=== PATIENT | female | born 1940 | race Caucasian/White ===

== ENCOUNTER 2016-05-16 13:07 | Outpatient (CLI) | payer MEDICARE ==
[2016-05-16 13:54] LABS: Bilirubin Negative (Negative); Blood, Urine Small (Negative); Glucose, Urine (Dipstick) Negative (Negative); Ketone, Urine Negative (Negative); Nitrite Negative (Negative); Protein, Urine (Dipstick) 100 mg/dL (Neg-Trace); Urobilinogen 0.2 mg/dL (0.2-1.0)
[2016-05-16 14:07] LABS: Bacteria/HPF 1+ HPF (None Seen); RBC/HPF 0-3 HPF (0-3); Squamous Epithelial 0-3 HPF (0-3)
== END 2016-05-16 13:08 | disposition home or self-care (01) ==
LOC: NAV LABSP 13:07
PROVIDERS: ATTEND Internal Medicine
DX: E78.5 Hyperlipidemia, unspecified (principal); R31.29 Other microscopic hematuria
CPT/HCPCS: 36415; 80061; 81001

== ENCOUNTER 2016-08-15 10:19 | Outpatient (CLI) | payer MEDICARE ==
[2016-08-15 13:40] LABS: Cardiac Risk 3.5 (Less than 4.5)
== END 2016-08-15 10:20 | disposition home or self-care (01) ==
LOC: NAVSJIPCSP 10:19
PROVIDERS: ATTEND Internal Medicine
DX: E78.5 Hyperlipidemia, unspecified (principal)
CPT/HCPCS: 36415; 80061

== ENCOUNTER 2016-10-11 11:18 | Outpatient (CLI) | payer MEDICARE ==
[2016-10-11 13:43] LABS: Bilirubin Negative (Negative); Blood, Urine Trace (Negative); Clarity Clear (Clear); Glucose, Urine (Dipstick) Negative (Negative); Leukocyte Negative (Negative); Nitrite Negative (Negative); Protein, Urine (Dipstick) Negative (Neg-Trace); Urobilinogen 0.2 mg/dL (0.2-1.0); pH, Urine 6.5 (5.0-9.0)
[2016-10-11 14:09] LABS: RBC/HPF 0-3 HPF (0-3); Squamous Epithelial 0-3 HPF (0-3)
== END 2016-10-11 11:19 | disposition home or self-care (01) ==
LOC: NAVSJIPCSP 11:18
PROVIDERS: ATTEND Urology
DX: N39.0 Urinary tract infection, site not specified (principal)
CPT/HCPCS: 36415; 81001; 87086

== ENCOUNTER 2016-10-17 10:30 | Outpatient (CLI) | payer MEDICARE ==
[2016-10-17 12:48] LABS: ALT (SGPT) 22 U/L (8-55); AST (SGOT) 23 U/L (5-34); Albumin 3.7 g/dL (3.4-4.8); Alkaline Phosphatase 55 U/L (40-150); Anion Gap 19 mmol/L (10-20); BUN (Urea Nitrogen) 18 mg/dL (9.8-20.1); Bilirubin, Total 0.4 mg/dL (0.2-1.2); Calc. Creatinine Clearance 0 mL/min (70-130); Calcium 9.7 mg/dL (7.8-10.44); Carbon Dioxide 22 mmol/L (23-31); Chloride 104 mmol/L (98-107); Estimated GFR-MDRD 62; Globulin 3.1 g/dL (2.4-3.5); Glucose 80 mg/dL (83-110); Potassium 3.8 mmol/L (3.5-5.1); Protein, Total 6.8 g/dL (6.0-8.3); Sodium 141 mmol/L (136-145)
[2016-10-17 14:04] LABS: Hemoglobin 13.7 g/dL (12.0-16.0); Mean Corpuscular HGB CONC 31.6 g/dL (32.0-36.0); Mean Corpuscular Hemoglobin 32.1 pg (27.0-31.0); Mean Platelet Volume 6.9 fL (7.4-10.4); Platelet Count 293 thou/uL (130-400); RBC Distribution Width 12.3 % (11.5-14.5); Red Blood Cell (RBC) Count 4.25 mill/uL (4.20-5.40); White Blood Cell (WBC) Count 14.9 thou/uL (4.8-10.8)
[2016-10-17 14:05] LABS: MDiff Complete? YES
[2016-10-17 14:06] LABS: Lymphocytes 22 % (21-51); Monocytes 12 % (0-10); Neutrophil 66 % (42-75); PLT Morphology Comment Appears Adequate
== END 2016-10-17 10:31 | disposition home or self-care (01) ==
LOC: NAVSJIPCSP 10:30
DX: R10.32 Left lower quadrant pain (principal)
CPT/HCPCS: 36415; 80053; 85025

== ENCOUNTER 2016-10-18 09:19 | Outpatient (CLI) | payer MEDICARE ==
[~2016-10-18 09:19] MED LIST: Iopamidol 370 76% 100 ML VIAL ONE
--- NOTE | 2016-11-08 09:40 | CT ---
CT OF ABDOMEN AND PELVIS WITH CONTRAST: Comparison: None. History: Left sided abdominal pain for days. Technique: Multiple contiguous axial images were obtained in a CT of the abdomen and pelvis with con trast. PO contrast was administered. Coronal reformats were performed. FINDINGS: The liver, gallbladder, kidneys, adrenal glands, spleen, and pancreas are unremarkable. No free air, free fluid, or stranding changes are seen in the abdomen or pelvis. There is scattered diverticula in the colon. There may be subtle stranding adjacent to the sigmoid c olon consistent with acute diverticulitis. The small bowel is normal in caliber. The appendix is not definitely seen. Streak artifact limits evaluation of the pelvis from the patient's right hip prosthesis. No abdomina l or pelvic lymphadenopathy are seen. Atherosclerotic calcification is seen in the aorta. Degenerative changes and post-surgical changes are seen in the spine. The visualized inferior thorax are unremarkable. The patient has a fat containing umbilical hernia. IMPRESSION: 1. Diverticulosis with findings suggesting acute diverticulosis. 2. Umbilical hernia. POS: [facility]
== END 2016-10-18 09:20 | disposition home or self-care (01) ==
LOC: NAV CT 09:19
DX: R10.32 Left lower quadrant pain (principal); K57.90 Diverticulosis of intestine, part unspecified, without perforation or abscess without bleeding; K42.9 Umbilical hernia without obstruction or gangrene
CPT/HCPCS: 74177

== ENCOUNTER 2016-11-15 09:14 | Outpatient (CLI) | payer MEDICARE ==
[2016-11-15 12:59] LABS: Cardiac Risk 3.9 (Less than 4.5)
== END 2016-11-15 09:15 | disposition home or self-care (01) ==
LOC: NAVSJIPCSP 09:14
PROVIDERS: ATTEND Internal Medicine
DX: E78.5 Hyperlipidemia, unspecified (principal)
CPT/HCPCS: 36415; 80061

== ENCOUNTER 2016-11-29 14:33 | Outpatient (CLI) | payer MEDICARE ==
[2016-11-29 21:51] LABS: ALT (SGPT) 24 U/L (8-55); AST (SGOT) 22 U/L (5-34); Albumin 3.7 g/dL (3.4-4.8); Alkaline Phosphatase 59 U/L (40-150); Anion Gap 16 mmol/L (10-20); BUN (Urea Nitrogen) 13 mg/dL (9.8-20.1); Bilirubin, Total 0.3 mg/dL (0.2-1.2); Calc. Creatinine Clearance 0 mL/min (70-130); Calcium 9.3 mg/dL (7.8-10.44); Carbon Dioxide 24 mmol/L (23-31); Chloride 105 mmol/L (98-107); Estimated GFR-MDRD 68; Globulin 2.7 g/dL (2.4-3.5); Glucose 129 mg/dL (83-110); Potassium 3.7 mmol/L (3.5-5.1); Protein, Total 6.4 g/dL (6.0-8.3); Sodium 141 mmol/L (136-145)
== END 2016-11-29 14:34 | disposition home or self-care (01) ==
LOC: NAVSJIPCSP 14:33
PROVIDERS: ATTEND Internal Medicine Rheumatology
DX: E55.9 Vitamin D deficiency, unspecified (principal); M81.0 Age-related osteoporosis without current pathological fracture
CPT/HCPCS: 36415; 80053; 82306

== ENCOUNTER 2018-01-31 11:31 | Outpatient (CLI) | payer MEDICARE ==
--- NOTE | 2018-01-31 13:56 | RAD ---
CHEST PA AND LATERAL 2 VIWES: HISTORY: A 77-year-old female with a history of dyspnea and cough. FINDINGS: Minimal linear parenchymal changes adjacent to the left heart border and in the left lower lobe, nons pecific, possibly mild pneumonitis, subsegmental atelectasis, or some underlying chronic component. There is also some mild nodularity in the right base, nonspecific as well. Several lower thoracic ve rtebral bodies show vertical height loss on the lateral view. There are prominent arthrosis and dege nerative changes of the left shoulder joint. Heart size is within normal limits. Atherosclerosis of the aorta. IMPRESSION: Some linear parenchymal changes in the left lower lobe and mild nodular changes in the right lower lo be, nonspecific, no evidence for confluent lobar pneumonia. No overt edema or acute pleural effusion . Left shoulder arthrosis. Atherosclerosis of the aorta with ectasia. Depending on concern, short- term followup and consideration for treatment of pneumonia or pneumonitis if that correlated with cli nical and laboratory findings. POS: [facility]
== END 2018-01-31 11:32 | disposition home or self-care (01) ==
LOC: NAV RAD 11:31
PROVIDERS: ATTEND Nurse Practitioner Adult Health
DX: R06.09 Other forms of dyspnea (principal); R05 Cough; R91.8 Other nonspecific abnormal finding of lung field; M19.012 Primary osteoarthritis, left shoulder; I70.0 Atherosclerosis of aorta; I77.819 Aortic ectasia, unspecified site
CPT/HCPCS: 71046

== ENCOUNTER 2018-02-07 06:59 | Emergency (ER) | payer MEDICARE ==
--- NOTE | 2018-02-07 08:14 | RAD ---
CHEST 1 VIEW AND ABDOMEN 2 VIEWS: Date: 02/07/18 HISTORY: Left upper quadrant pain. FINDINGS/IMPRESSION: The heart size is normal. The aorta is tortuous. The lungs are expanded without focal areas of consol idation, pneumothoraces, or pleural effusions. There are degenerative changes in the thoracolumbar sp ine and the left shoulder joint. There are postop changes and metallic hardware in the L4-L5-S1 level s and a right femoral head prosthesis. No free air or differential fluid levels are seen. There is fecal material in the colon. The bowel ga s pattern is unremarkable. POS: [facility]
[2018-02-07 08:24] LABS: #Basophils 0.1 thou/uL (0.0-0.2); #Eosinphils 0.7 thou/uL (0.0-0.7); #Lymphocytes 2.7 thou/uL (1.20-3.40); #Neutrophils 5.9 thou/uL (1.40-6.50); %Basophils 1.4 % (0.0-1.0); %Eosinophils 6.7 % (0.0-10.0); %Lymphocytes 25.6 % (21.0-51.0); %Monocytes 9.8 % (0.0-10.0); %Neutrophils 56.5 % (42.0-75.0); Hemoglobin 13.3 g/dL (12.0-16.0); Mean Corpuscular HGB CONC 32.1 g/dL (32.0-36.0); Mean Corpuscular Hemoglobin 32.4 pg (27.0-31.0); Mean Platelet Volume 7.4 fL (7.4-10.4); Platelet Count 300 thou/uL (130-400); RBC Distribution Width 11.9 % (11.5-14.5); White Blood Cell (WBC) Count 10.5 thou/uL (4.8-10.8)
[2018-02-07 08:30] LABS: Bilirubin Negative (Negative); Blood, Urine Trace (Negative); Clarity Clear (Clear); Glucose, Urine (Dipstick) Negative (Negative); Leukocyte Negative (Negative); Nitrite Negative (Negative); Protein, Urine (Dipstick) Negative (Neg-Trace); Specific Gravity, Urine 1.015 (1.005-1.030); Urobilinogen 0.2 mg/dL (0.2-1.0); pH, Urine 6.5 (5.0-9.0)
[2018-02-07 08:38] LABS: ALT (SGPT) 37 U/L (8-55); AST (SGOT) 32 U/L (5-34); Albumin 3.8 g/dL (3.4-4.8); Alkaline Phosphatase 65 U/L (40-150); Anion Gap 14 mmol/L (10-20); BUN (Urea Nitrogen) 19 mg/dL (9.8-20.1); Bilirubin, Total 0.4 mg/dL (0.2-1.2); Calc. Creatinine Clearance 0 mL/min (70-130); Calcium 10.5 mg/dL (7.8-10.44); Carbon Dioxide 26 mmol/L (23-31); Chloride 104 mmol/L (98-107); Estimated GFR-MDRD 60; Globulin 3.7 g/dL (2.4-3.5); Glucose 101 mg/dL (83-110); Lipase 38 U/L (8-78); Potassium 3.9 mmol/L (3.5-5.1); Protein, Total 7.5 g/dL (6.0-8.3); Sodium 140 mmol/L (136-145)
[2018-02-07 08:43] LABS: WBC/HPF 0-3 HPF (0-3)
[2018-02-07 08:44] LABS: Bacteria/HPF Rare-Few HPF (None Seen); Other Microscopic Description NO
== END 2018-02-07 09:20 | disposition home or self-care (01) ==
LOC: NAV ERS 06:59
DX: R10.12 Left upper quadrant pain (principal); E03.9 Hypothyroidism, unspecified; K21.9 Gastro-esophageal reflux disease without esophagitis; E78.5 Hyperlipidemia, unspecified; I10 Essential (primary) hypertension; Z79.899 Other long term (current) drug therapy
CPT/HCPCS: 74022; 80053; 81003; 81015; 83690; 85025

== ENCOUNTER 2018-06-13 13:07 | Outpatient (CLI) | payer MEDICARE ==
--- NOTE | 2018-06-13 15:37 | ULT ---
PELVIC ULTRASOUND WITH HAHN SCALE AND DOPPLER COLOR FLOW IMAGING TRANSVAGINAL AND TRANSABDOMINAL PELVIC ULTRASOUND PERFORMED: FINDINGS: There is multifocal punctate increased echogenicity of the uterine parenchyma. Endometrium is 4 mm in thickness. Doppler evaluation is performed which reveals flow to each ovary. No signifi cant free pelvic fluid. IMPRESSION: 1. Multifocal hyperechoic structure of the uterus which may relate to multiple small uterine calcifi cations. Findings are of indeterminate etiology. The possibility of underlying fibroid uterus may b e present, although a dominant, discernible uterine fibroid is not identified. 2. Endometrial stripe of 4 mm in thickness. 3. Flow is elicited from each ovary from with vascular waveforms documented. POS: [facility]
== END 2018-06-13 13:08 | disposition home or self-care (01) ==
LOC: NAV ULT 13:07
PROVIDERS: ATTEND Nurse Practitioner Adult Health
DX: R10.2 Pelvic and perineal pain (principal); R93.89 Abnormal findings on diagnostic imaging of other specified body structures
CPT/HCPCS: 76856

== ENCOUNTER 2021-05-02 10:58 | Outpatient (CLI) | payer MEDICARE | END 2021-05-02 10:59 | disposition home or self-care (01) | LOC: NAV RAD 10:58 | PROVIDERS: ATTEND Family Medicine | DX: M25.551 Pain in right hip (principal); M79.604 Pain in right leg ==

== ENCOUNTER 2021-12-24 12:46 | Emergency (ER) | payer MEDICARE ==
[2021-12-24] MEDS ORDERED: Aspirin Chewable 81 MG TAB ONE (13:05)
[2021-12-24 13:20] LABS: Prothrombin Time 12.8 sec (12.0-14.7)
[2021-12-24 13:21] LABS: PTT 29.1 sec (22.9-36.1)
[2021-12-24 13:27] LABS: #Basophils 0.1 thou/uL (0.0-0.2); #Eosinphils 0.3 thou/uL (0.0-0.7); #Lymphocytes 3.5 thou/uL (1.20-3.40); #Monocytes 0.7 thou/uL (0.11-0.59); #Neutrophils 3.7 thou/uL (1.40-6.50); %Basophils 1.2 % (0.0-1.0); %Eosinophils 3.8 % (0.0-10.0); %Lymphocytes 42.2 % (21.0-51.0); %Monocytes 8.6 % (0.0-10.0); %Neutrophils 44.3 % (42.0-75.0); Hemoglobin 14.9 g/dL (12.0-16.0); Mean Corpuscular HGB CONC 29.5 g/dL (32.0-36.0); Mean Platelet Volume 8.5 fL (7.4-10.4); Platelet Count 244 thou/uL (130-400); RBC Distribution Width 13.4 % (11.5-14.5); White Blood Cell (WBC) Count 8.3 thou/uL (4.8-10.8)
[2021-12-24 13:29] LABS: ALT (SGPT) 21 U/L (8-55); AST (SGOT) 16 U/L (5-34); Albumin 3.4 g/dL (3.4-4.8); Alkaline Phosphatase 46 U/L (40-110); Anion Gap 17 mmol/L (10-20); BUN (Urea Nitrogen) 19 mg/dL (9.8-20.1); Bilirubin, Total 0.4 mg/dL (0.2-1.2); CK (CPK) 49 U/L (29-168); Calc. Creatinine Clearance 0 mL/min (70-130); Calcium 9.8 mg/dL (7.8-10.44); Carbon Dioxide 24 mmol/L (23-31); Chloride 104 mmol/L (98-107); Estimated GFR 54; Globulin 3.4 g/dL (2.4-3.5); Glucose 101 mg/dL (83-110); Potassium 3.7 mmol/L (3.5-5.1); Protein, Total 6.8 g/dL (5.8-8.1); Sodium 141 mmol/L (136-145)
[2021-12-24 13:34] LABS: Bilirubin Negative (Negative); Blood, Urine Small (Negative); Clarity Cloudy (Clear); Glucose, Urine (Dipstick) Negative (Negative); Ketone, Urine Negative (Negative); Leukocyte Moderate (Negative); Nitrite Positive (Negative); Protein, Urine (Dipstick) 100 mg/dL (Neg-Trace); Urobilinogen 0.2 mg/dL (Less than 2)
[2021-12-24 13:36] LABS: Bacteria/HPF 2+ HPF (None Seen); RBC/HPF 0-3 HPF (0-3); Squamous Epithelial 0-3 HPF (0-3)
[2021-12-24 13:39] LABS: MDiff Complete? YES; Macrocytosis SLIGHT = 6-15 cells (100X) (0-5/hpf); Platelet Morphology Comment Appears Adequate
[2021-12-24] MEDS ORDERED: cefTRIAXone\\ROCEPHIN 1 GM VIAL ONE (13:44)
[2021-12-24] MEDS ORDERED: Sodium Chloride 0.9% 100 ML ONE (13:45)
[2021-12-24 13:49] LABS: CKMB 1.5 ng/mL (0-6.6)
[2021-12-24 15:05] LABS: SARS-CoV-2 NAA Rapid Test Not Detected (NotDetected)
[2021-12-24] MEDS ORDERED: Acetaminophen 500 MG TAB ONE (15:05)
== END 2021-12-24 15:27 | disposition short-term general hospital (02) ==
LOC: NAV ERS 12:46
DX: G45.9 Transient cerebral ischemic attack, unspecified (principal); K11.5 Sialolithiasis; N39.0 Urinary tract infection, site not specified; M19.90 Unspecified osteoarthritis, unspecified site; K21.9 Gastro-esophageal reflux disease without esophagitis; E78.00 Pure hypercholesterolemia, unspecified; I10 Essential (primary) hypertension; E78.5 Hyperlipidemia, unspecified; Z20.822 Contact with and (suspected) exposure to COVID-19; Z79.02 Long term (current) use of antithrombotics/antiplatelets; Z79.82 Long term (current) use of aspirin; Z79.899 Other long term (current) drug therapy
CPT/HCPCS: 70450; 71045; 80053; 82550; 82553; 82962; 84484; 85025; 85610; 85730; 87077; 87086; 87186; 93005; 96365; 99285; U0002; 36415; 36416; 81003; 81015; J0696; J3490

== ENCOUNTER 2023-03-04 17:05 | Emergency (ER) | payer MEDICARE ==
[2023-03-04 17:33] LABS: Hematocrit 47.7 % (36.0-47.0); Hemoglobin 15.2 g/dL (12.0-16.0); Mean Corpuscular HGB CONC 31.9 g/dL (32.0-36.0); Mean Corpuscular Hemoglobin 33.4 pg (27.0-31.0); Mean Platelet Volume 8.6 fL (7.4-10.4); Platelet Count 249 10x3/uL (130-400); RBC Distribution Width 13.1 % (11.5-14.5); Red Blood Cell (RBC) Count 4.56 mill/uL (4.20-5.40)
[2023-03-04 17:40] LABS: #Basophils 0.1 thou/uL (0.0-0.2); #Eosinphils 0.2 thou/uL (0.0-0.7); #Lymphocytes 2.7 thou/uL (1.20-3.40); #Monocytes 1.4 thou/uL (0.11-0.59); #Neutrophils 10.6 thou/uL (1.40-6.50); %Basophils 0.8 % (0.0-1.0); %Eosinophils 1.3 % (0.0-10.0); %Lymphocytes 18.1 % (21.0-51.0); %Monocytes 9.1 % (0.0-10.0); %Neutrophils 70.7 % (42.0-75.0)
[2023-03-04 17:48] LABS: ALT (SGPT) 24 U/L (8-55); AST (SGOT) 28 U/L (5-34); Alkaline Phosphatase 59 U/L (40-110); Anion Gap 14 mmol/L (10-20); BUN (Urea Nitrogen) 20 mg/dL (9.8-20.1); Bilirubin, Total 0.4 mg/dL (0.2-1.2); Calc. Creatinine Clearance 0 mL/min (70-130); Carbon Dioxide 27 mmol/L (23-31); Chloride 101 mmol/L (98-107); Estimated GFR 55; Globulin 3.8 g/dL (2.4-3.5); Glucose 121 mg/dL (83-110); Potassium 4.1 mmol/L (3.5-5.1); Protein, Total 7.8 g/dL (5.8-8.1); Sodium 138 mmol/L (136-145)
[2023-03-04 17:49] LABS: Troponin I 0.033 ng/mL (< 0.028)
[2023-03-04] MEDS ORDERED: Nitroglycerin 0.4 MG TAB 1 EACH ONE (18:32)
[2023-03-04] MEDS ORDERED: Aspirin Chewable 81 MG TAB ONE (18:32)
== END 2023-03-04 20:22 | disposition short-term general hospital (02) ==
LOC: NAV ERS 17:05
DX: R07.9 Chest pain, unspecified (principal); E03.9 Hypothyroidism, unspecified; K21.9 Gastro-esophageal reflux disease without esophagitis; E78.00 Pure hypercholesterolemia, unspecified; I10 Essential (primary) hypertension; Z79.82 Long term (current) use of aspirin; Z79.899 Other long term (current) drug therapy
CPT/HCPCS: 71045; 80053; 83880; 84484; 85025; 93005

== ENCOUNTER 2023-03-09 18:15 | Inpatient (IN) | payer MEDICARE ==
[2023-03-10] MEDS ORDERED: Ondansetron PF 4 MG/2 ML Vial IVP PRN (11:00)
[2023-03-10] MEDS ORDERED: Acetaminophen 650 MG Suppository PR PRN (11:00)
[2023-03-10] MEDS ORDERED: Ondansetron ODT 4 MG TAB PO PRN (11:00)
[2023-03-10] MEDS ORDERED: Senokot S 8.6-50 MG TAB PO PRN (11:00)
[2023-03-10] MEDS ORDERED: Bisacodyl 5 MG TAB PO PRN (11:00)
[2023-03-10] MEDS ORDERED: Acetaminophen 325 MG TAB PO PRN (11:00)
[2023-03-10] MEDS ORDERED: Calcium Carbonate 500 MG TAB PO SCH (17:45)
[2023-03-10] MEDS: Ferrous Sulfate 325 MG TAB PO SCH (17:52)
[2023-03-10] MEDS: Guaifenesin DM 100-10/5 ML UDCUP PO SCH (17:52)
[2023-03-10] MEDS: Amiodarone 200 MG TAB PO SCH (20:39)
[2023-03-10] MEDS: Apixaban 5 MG TAB PO SCH (20:39)
[2023-03-10] MEDS: Doxycycline 100 MG CAP PO SCH (20:40)
[2023-03-10] MEDS: Famotidine 20 MG TAB PO SCH (20:40)
[2023-03-10] MEDS: Atorvastatin Calcium 10 MG TAB PO SCH (20:40)
[2023-03-11] MEDS: Guaifenesin DM 100-10/5 ML UDCUP PO SCH ×4 (00:37→17:40)
[2023-03-11 05:06] VITALS: BMI 39.4
[2023-03-11 05:11] LABS: #Basophils 0.1 thou/uL (0.0-0.2); #Eosinphils 0.4 thou/uL (0.0-0.7); #Monocytes 1.5 thou/uL (0.11-0.59); #Neutrophils 7.7 thou/uL (1.40-6.50); %Basophils 0.5 % (0.0-1.0); %Eosinophils 3.4 % (0.0-10.0); %Lymphocytes 17.2 % (21.0-51.0); %Monocytes 12.8 % (0.0-10.0); Hematocrit 41.4 % (36.0-47.0); Hemoglobin 13.4 g/dL (12.0-16.0); Mean Corpuscular HGB CONC 32.3 g/dL (32.0-36.0); Mean Corpuscular Hemoglobin 33.6 pg (27.0-31.0); Mean Platelet Volume 7.5 fL (7.4-10.4); Platelet Count 326 10x3/uL (130-400); RBC Distribution Width 11.8 % (11.5-14.5); Red Blood Cell (RBC) Count 3.99 mill/uL (4.20-5.40); White Blood Cell (WBC) Count 11.6 10x3/uL (4.8-10.8)
[2023-03-11 05:27] LABS: Anion Gap 14 mmol/L (10-20); BUN (Urea Nitrogen) 26 mg/dL (9.8-20.1); Calc. Creatinine Clearance 61 mL/min (70-130); Carbon Dioxide 27 mmol/L (23-31); Chloride 101 mmol/L (98-107); Estimated GFR 50; Glucose 94 mg/dL (83-110); Potassium 4.2 mmol/L (3.5-5.1); Sodium 138 mmol/L (136-145)
[2023-03-11] MEDS: Levothyroxine Sodium 125 MCG TAB PO SCH (06:15)
[2023-03-11] MEDS ORDERED: Ipratropium/Albuterol 3 ML NEB NEB PRN (08:29)
[2023-03-11] MEDS: Calcium Carbonate 500 MG TAB PO SCH ×2 (08:52→17:40)
[2023-03-11] MEDS: DULoxetine 20 MG CAP PO SCH (08:52)
[2023-03-11] MEDS: Mirabegron ER 25 MG ER.TAB PO SCH (08:53)
[2023-03-11] MEDS: Amiodarone 200 MG TAB PO SCH ×2 (08:53→20:31)
[2023-03-11] MEDS: Aspirin 81 mg Enteric Coated Tablet PO SCH (08:54)
[2023-03-11] MEDS: Doxycycline 100 MG CAP PO SCH ×2 (08:54→20:32)
[2023-03-11] MEDS: Loratadine 10 MG TAB PO SCH (08:54)
[2023-03-11] MEDS: Cholecalciferol 1,000 UNITS (25 MCG) TAB PO SCH (08:54)
[2023-03-11] MEDS: Multivitamin W/ Minerals 1 TAB PO SCH (08:54)
[2023-03-11] MEDS: Famotidine 20 MG TAB PO SCH ×2 (08:54→20:32)
[2023-03-11] MEDS: Apixaban 5 MG TAB PO SCH ×2 (08:55→20:32)
[2023-03-11] MEDS: dilTIAZem CD 120 MG CAP PO SCH (08:55)
[2023-03-11] MEDS: Cyanocobalamin (Vitamin B-12) 1,000 MCG TAB PO SCH (08:55)
[2023-03-11] MEDS: Folic Acid 1 MG TAB PO SCH (08:55)
[2023-03-11] MEDS: Ipratropium/Albuterol 3 ML NEB NEB SCH ×4 (10:29→22:24)
[2023-03-11] MEDS: Ferrous Sulfate 325 MG TAB PO SCH (17:40)
[2023-03-11] MEDS: Atorvastatin Calcium 10 MG TAB PO SCH (20:31)
[2023-03-11] MEDS: CeleCOXIB 100 MG CAP PO SCH (20:31)
[2023-03-12] MEDS: Guaifenesin DM 100-10/5 ML UDCUP PO SCH ×5 (00:52→22:43)
[2023-03-12] MEDS: Ipratropium/Albuterol 3 ML NEB NEB SCH ×6 (03:31→22:36)
[2023-03-12] MEDS: Levothyroxine Sodium 125 MCG TAB PO SCH (05:17)
[2023-03-12] MEDS: Multivitamin W/ Minerals 1 TAB PO SCH (08:14)
[2023-03-12] MEDS: Cyanocobalamin (Vitamin B-12) 1,000 MCG TAB PO SCH (08:14)
[2023-03-12] MEDS: Calcium Carbonate 500 MG TAB PO SCH ×2 (08:14→17:17)
[2023-03-12] MEDS: Famotidine 20 MG TAB PO SCH ×2 (08:14→20:28)
[2023-03-12] MEDS: Cholecalciferol 1,000 UNITS (25 MCG) TAB PO SCH (08:14)
[2023-03-12] MEDS: Apixaban 5 MG TAB PO SCH ×2 (08:15→20:28)
[2023-03-12] MEDS: DULoxetine 20 MG CAP PO SCH (08:15)
[2023-03-12] MEDS: Doxycycline 100 MG CAP PO SCH ×2 (08:15→20:29)
[2023-03-12] MEDS: Aspirin 81 mg Enteric Coated Tablet PO SCH (08:15)
[2023-03-12] MEDS: Folic Acid 1 MG TAB PO SCH (08:15)
[2023-03-12] MEDS: Mirabegron ER 25 MG ER.TAB PO SCH (08:16)
[2023-03-12] MEDS: CeleCOXIB 100 MG CAP PO SCH ×2 (08:18→20:29)
[2023-03-12] MEDS: Loratadine 10 MG TAB PO SCH (08:19)
[2023-03-12] MEDS: Estradiol [Estrace 0.01% Vaginal Cream] 42.5 GM Tube VAG SCH ×2 (08:19→11:15)
[2023-03-12] MEDS: Amiodarone 200 MG TAB PO SCH ×2 (08:21→20:28)
[2023-03-12] MEDS: dilTIAZem CD 120 MG CAP PO SCH (08:21)
[2023-03-12] MEDS: Ferrous Sulfate 325 MG TAB PO SCH (17:17)
[2023-03-12] MEDS ORDERED: Promethazine HCl 25 MG SUPP PR PRN (18:50)
[2023-03-12] MEDS ORDERED: Artificial Tear Sol 15 ML BOT EA EYE PRN (18:50)
[2023-03-12] MEDS ORDERED: Benzocaine/Menthol 1 LOZ LOZ PO PRN (18:50)
[2023-03-12] MEDS ORDERED: Sodium Chloride 0.65% Nasal 44 ML BOT EA NARE PRN (18:50)
[2023-03-12] MEDS ORDERED: cloNIDine 0.1 MG TAB PO PRN (18:50)
[2023-03-12] MEDS: Atorvastatin Calcium 10 MG TAB PO SCH (20:29)
[2023-03-13] MEDS: Ipratropium/Albuterol 3 ML NEB NEB SCH ×6 (02:16→21:52)
[2023-03-13] MEDS: Levothyroxine Sodium 125 MCG TAB PO SCH (06:08)
[2023-03-13] MEDS: Guaifenesin DM 100-10/5 ML UDCUP PO SCH ×3 (06:12→17:45)
[2023-03-13] MEDS: Cyanocobalamin (Vitamin B-12) 1,000 MCG TAB PO SCH (08:39)
[2023-03-13] MEDS: Doxycycline 100 MG CAP PO SCH ×2 (08:39→21:51)
[2023-03-13] MEDS: Mirabegron ER 25 MG ER.TAB PO SCH (08:39)
[2023-03-13] MEDS: Amiodarone 200 MG TAB PO SCH ×2 (08:40→21:52)
[2023-03-13] MEDS: CeleCOXIB 100 MG CAP PO SCH ×2 (08:41→21:51)
[2023-03-13] MEDS: Calcium Carbonate 500 MG TAB PO SCH ×2 (08:42→17:44)
[2023-03-13] MEDS: Multivitamin W/ Minerals 1 TAB PO SCH (08:42)
[2023-03-13] MEDS: Apixaban 5 MG TAB PO SCH ×2 (08:42→21:51)
[2023-03-13] MEDS: dilTIAZem CD 120 MG CAP PO SCH (08:42)
[2023-03-13] MEDS: Aspirin 81 mg Enteric Coated Tablet PO SCH (08:42)
[2023-03-13] MEDS: DULoxetine 20 MG CAP PO SCH (08:43)
[2023-03-13] MEDS: Loratadine 10 MG TAB PO SCH (08:43)
[2023-03-13] MEDS: Cholecalciferol 1,000 UNITS (25 MCG) TAB PO SCH (08:43)
[2023-03-13] MEDS: Famotidine 20 MG TAB PO SCH ×2 (08:43→21:51)
[2023-03-13] MEDS: Folic Acid 1 MG TAB PO SCH (09:11)
[2023-03-13] MEDS: Ferrous Sulfate 325 MG TAB PO SCH (17:44)
[2023-03-13] MEDS: Atorvastatin Calcium 10 MG TAB PO SCH (21:51)
[2023-03-14] MEDS: Guaifenesin DM 100-10/5 ML UDCUP PO SCH ×4 (00:10→17:36)
[2023-03-14] MEDS: Ipratropium/Albuterol 3 ML NEB NEB SCH ×5 (03:07→17:36)
[2023-03-14] MEDS: Levothyroxine Sodium 125 MCG TAB PO SCH (06:29)
[2023-03-14] MEDS: DULoxetine 20 MG CAP PO SCH (08:17)
[2023-03-14] MEDS: Mirabegron ER 25 MG ER.TAB PO SCH (08:18)
[2023-03-14] MEDS: CeleCOXIB 100 MG CAP PO SCH (08:18)
[2023-03-14] MEDS: Calcium Carbonate 500 MG TAB PO SCH ×2 (08:19→17:36)
[2023-03-14] MEDS: Aspirin 81 mg Enteric Coated Tablet PO SCH (08:19)
[2023-03-14] MEDS: Folic Acid 1 MG TAB PO SCH (08:19)
[2023-03-14] MEDS: Amiodarone 200 MG TAB PO SCH (08:19)
[2023-03-14] MEDS: Cholecalciferol 1,000 UNITS (25 MCG) TAB PO SCH (08:19)
[2023-03-14] MEDS: Loratadine 10 MG TAB PO SCH (08:19)
[2023-03-14] MEDS: Multivitamin W/ Minerals 1 TAB PO SCH (08:20)
[2023-03-14] MEDS: Famotidine 20 MG TAB PO SCH (08:20)
[2023-03-14] MEDS: Doxycycline 100 MG CAP PO SCH (08:20)
[2023-03-14] MEDS: Apixaban 5 MG TAB PO SCH (08:20)
[2023-03-14] MEDS: Cyanocobalamin (Vitamin B-12) 1,000 MCG TAB PO SCH (08:21)
[2023-03-14] MEDS: dilTIAZem CD 120 MG CAP PO SCH (08:21)
[2023-03-14] MEDS: Estradiol [Estrace 0.01% Vaginal Cream] 42.5 GM Tube VAG SCH (08:24)
[2023-03-14 12:20] LABS: Bilirubin Small (Negative); Blood, Urine Large (Negative); Glucose, Urine (Dipstick) 100 mg/dL (Negative); Ketone, Urine Trace mg/dL (Negative); Leukocyte Negative (Negative); Nitrite Negative (Negative); Protein, Urine (Dipstick) > or equal to 300 mg/dL (Neg-Trace); Specific Gravity, Urine 1.025 (1.005-1.030); Urobilinogen 0.2 mg/dL (Less than 2); pH, Urine 5.5 (5.0-9.0)
[2023-03-14 12:26] LABS: Clarity Cloudy (Clear)
[2023-03-14 13:58] LABS: Mucous/LPF 1+ LPF (<2+); RBC/HPF Greater than 50 HPF (0-3); Squamous Epithelial 0-3 HPF (0-3); WBC/HPF 0-3 HPF (0-3)
[2023-03-14] MEDS ORDERED: Furosemide 20 MG TAB PO SCH (14:00)
[2023-03-14 16:21] LABS: #Basophils 0.1 thou/uL (0.0-0.2); #Eosinphils 0.1 thou/uL (0.0-0.7); #Lymphocytes 1.2 thou/uL (1.20-3.40); #Monocytes 1.1 thou/uL (0.11-0.59); %Basophils 0.6 % (0.0-1.0); %Eosinophils 0.5 % (0.0-10.0); %Lymphocytes 9.4 % (21.0-51.0); %Monocytes 8.8 % (0.0-10.0); %Neutrophils 80.7 % (42.0-75.0); Hemoglobin 11.8 g/dL (12.0-16.0); Mean Corpuscular HGB CONC 32.8 g/dL (32.0-36.0); Mean Corpuscular Hemoglobin 33.4 pg (27.0-31.0); Mean Platelet Volume 8.2 fL (7.4-10.4); Platelet Count 337 10x3/uL (130-400); RBC Distribution Width 11.7 % (11.5-14.5); Red Blood Cell (RBC) Count 3.54 mill/uL (4.20-5.40); White Blood Cell (WBC) Count 12.4 10x3/uL (4.8-10.8)
[2023-03-14 16:40] LABS: Anion Gap 16 mmol/L (10-20); BUN (Urea Nitrogen) 54 mg/dL (9.8-20.1); Calc. Creatinine Clearance 25 mL/min (70-130); Calcium 10.3 mg/dL (7.8-10.44); Carbon Dioxide 22 mmol/L (23-31); Chloride 92 mmol/L (98-107); Estimated GFR 17; Glucose 117 mg/dL (83-110); Potassium 4.6 mmol/L (3.5-5.1); Sodium 125 mmol/L (136-145)
[2023-03-14] MEDS ORDERED: Meropenem 1 GM in Sodium Chloride 0.9% 100 ML IVPB SCH ×2 (17:15→22:00)
[2023-03-14] MEDS ORDERED: Sodium Chloride 0.9% 1,000 ML IV SCH (17:30)
[2023-03-14] MEDS: Ferrous Sulfate 325 MG TAB PO SCH (17:36)
[2023-03-14 20:09] VITALS: BP 122/68; TEMP 97.6
[2023-03-14] MEDS ORDERED: Doxycycline 100 MG CAP PO SCH (21:00)
[2023-03-14] MEDS ORDERED: Nitrofurantoin Monohyd/M-Cryst 100 MG CAP PO SCH (21:00)
[2023-03-15] MEDS ORDERED: Meropenem 500 MG in Sodium Chloride 0.9% 100 ML IVPB SCH (04:00)
[2023-03-31] MEDS ORDERED: Amiodarone 200 MG TAB PO SCH (21:00)
== END 2023-03-14 20:05 | disposition swing bed (61) | DRG 193 ==
LOC: NAV ACUTE 03-10 13:36
PROVIDERS: ADMIT Family Medicine; ATTEND Family Medicine
DX: J18.9 Pneumonia, unspecified organism (principal); I50.23 Acute on chronic systolic (congestive) heart failure; J96.01 Acute respiratory failure with hypoxia; N39.0 Urinary tract infection, site not specified; J98.11 Atelectasis; I11.0 Hypertensive heart disease with heart failure; R53.81 Other malaise; E78.5 Hyperlipidemia, unspecified; M79.675 Pain in left toe(s); R30.0 Dysuria; E03.9 Hypothyroidism, unspecified; R31.9 Hematuria, unspecified; I48.0 Paroxysmal atrial fibrillation; E66.01 Morbid (severe) obesity due to excess calories; M19.90 Unspecified osteoarthritis, unspecified site; Z96.653 Presence of artificial knee joint, bilateral; M10.9 Gout, unspecified; Z88.8 Allergy status to other drugs, medicaments and biological substances; Z79.82 Long term (current) use of aspirin; Z79.899 Other long term (current) drug therapy; Z68.39 Body mass index [BMI] 39.0-39.9, adult
CPT/HCPCS: 36415; 71046; 80048; 81001; 83880; 84145; 84550; 85025; 87077; 87086; 87186; 94640; J7620

== ENCOUNTER 2023-03-22 10:07 | Inpatient (IN) | payer MEDICARE ==
[2023-03-22] MEDS ORDERED: Ondansetron ODT 4 MG TAB SL PRN (12:52)
[2023-03-22] MEDS ORDERED: Ipratropium/Albuterol 3 ML NEB ONE (14:18)
[2023-03-22] MEDS: Furosemide 40 MG TAB PO SCH (15:24)
[2023-03-22] MEDS: Senokot S 8.6-50 MG TAB PO SCH (20:24)
[2023-03-22] MEDS: Amiodarone 200 MG TAB PO SCH (20:24)
[2023-03-22] MEDS: Atorvastatin Calcium 10 MG TAB PO SCH (20:24)
[2023-03-22] MEDS: Famotidine 20 MG TAB PO SCH (20:24)
[2023-03-22] MEDS: Ipratropium/Albuterol 3 ML NEB NEB PRN (20:25)
[2023-03-22] MEDS: Apixaban 5 MG TAB PO SCH (20:25)
[2023-03-22] MEDS: guaiFENesin/DM ER PO SCH (20:40)
[2023-03-23] MEDS: Ipratropium/Albuterol 3 ML NEB NEB PRN ×3 (02:15→18:06)
[2023-03-23] MEDS: Levothyroxine Sodium 125 MCG TAB PO SCH (05:33)
[2023-03-23] MEDS: Amiodarone 200 MG TAB PO SCH ×2 (08:18→20:53)
[2023-03-23] MEDS: Multivitamin W/ Minerals 1 TAB PO SCH (08:18)
[2023-03-23] MEDS: guaiFENesin/DM ER PO SCH ×2 (08:19→20:53)
[2023-03-23] MEDS: Furosemide 40 MG TAB PO SCH ×2 (08:19→13:01)
[2023-03-23] MEDS: Loratadine 10 MG TAB PO SCH (08:19)
[2023-03-23] MEDS: Aspirin 81 mg Enteric Coated Tablet PO SCH (08:19)
[2023-03-23] MEDS: Cyanocobalamin (Vitamin B-12) 1,000 MCG TAB PO SCH (08:19)
[2023-03-23] MEDS: Apixaban 5 MG TAB PO SCH ×2 (08:19→20:53)
[2023-03-23] MEDS: Cholecalciferol 1,000 UNITS (25 MCG) TAB PO SCH (08:19)
[2023-03-23] MEDS: Famotidine 20 MG TAB PO SCH (08:19)
[2023-03-23] MEDS: DULoxetine 20 MG CAP PO SCH (08:19)
[2023-03-23] MEDS ORDERED: Mirabegron ER 25 MG ER.TAB PO SCH (09:00)
[2023-03-23 13:03] LABS: #Basophils 0.1 thou/uL (0.0-0.2); #Eosinphils 0.2 thou/uL (0.0-0.7); #Lymphocytes 1.2 thou/uL (1.20-3.40); #Neutrophils 8.4 thou/uL (1.40-6.50); %Basophils 0.9 % (0.0-1.0); %Eosinophils 2.1 % (0.0-10.0); %Lymphocytes 10.7 % (21.0-51.0); %Monocytes 8.8 % (0.0-10.0); %Neutrophils 77.5 % (42.0-75.0); Hematocrit 35.8 % (36.0-47.0); Hemoglobin 11.2 g/dL (12.0-16.0); Mean Corpuscular HGB CONC 31.2 g/dL (32.0-36.0); Mean Corpuscular Hemoglobin 32.9 pg (27.0-31.0); Mean Platelet Volume 7.4 fL (7.4-10.4); Platelet Count 340 10x3/uL (130-400); RBC Distribution Width 12.4 % (11.5-14.5); Red Blood Cell (RBC) Count 3.39 mill/uL (4.20-5.40); White Blood Cell (WBC) Count 10.8 10x3/uL (4.8-10.8)
[2023-03-23 13:07] LABS: ALT (SGPT) 34 U/L (8-55); AST (SGOT) 37 U/L (5-34); Albumin 3.5 g/dL (3.4-4.8); Alkaline Phosphatase 70 U/L (40-110); Anion Gap 17 mmol/L (10-20); BUN (Urea Nitrogen) 35 mg/dL (9.8-20.1); Bilirubin, Total 0.5 mg/dL (0.2-1.2); Calc. Creatinine Clearance 31 mL/min (70-130); Calcium 9.3 mg/dL (7.8-10.44); Carbon Dioxide 25 mmol/L (23-31); Chloride 95 mmol/L (98-107); Estimated GFR 23; Glucose 109 mg/dL (83-110); Potassium 3.9 mmol/L (3.5-5.1); Protein, Total 7.5 g/dL (5.8-8.1); Sodium 133 mmol/L (136-145)
[2023-03-23] MEDS: Atorvastatin Calcium 10 MG TAB PO SCH (20:53)
[2023-03-23] MEDS: Senokot S 8.6-50 MG TAB PO SCH (20:53)
[2023-03-24 05:34] LABS: Anion Gap 15 mmol/L (10-20); BUN (Urea Nitrogen) 41 mg/dL (9.8-20.1); Calc. Creatinine Clearance 30 mL/min (70-130); Carbon Dioxide 28 mmol/L (23-31); Chloride 96 mmol/L (98-107); Estimated GFR 21; Glucose 87 mg/dL (83-110); Potassium 3.8 mmol/L (3.5-5.1); Sodium 135 mmol/L (136-145)
[2023-03-24] MEDS: Levothyroxine Sodium 125 MCG TAB PO SCH (05:34)
[2023-03-24] MEDS ORDERED: Furosemide 40 MG TAB PO SCH (07:30)
[2023-03-24] MEDS: Amiodarone 200 MG TAB PO SCH ×2 (09:38→20:54)
[2023-03-24] MEDS: Aspirin 81 mg Enteric Coated Tablet PO SCH (09:38)
[2023-03-24] MEDS: DULoxetine 20 MG CAP PO SCH (09:38)
[2023-03-24] MEDS: Multivitamin W/ Minerals 1 TAB PO SCH (09:38)
[2023-03-24] MEDS: Loratadine 10 MG TAB PO SCH (09:39)
[2023-03-24] MEDS: Cholecalciferol 1,000 UNITS (25 MCG) TAB PO SCH (09:39)
[2023-03-24] MEDS: Apixaban 5 MG TAB PO SCH (09:39)
[2023-03-24] MEDS: guaiFENesin/DM ER PO SCH ×2 (09:39→20:53)
[2023-03-24] MEDS: Famotidine 20 MG TAB PO SCH (09:39)
[2023-03-24] MEDS: Cyanocobalamin (Vitamin B-12) 1,000 MCG TAB PO SCH (09:39)
[2023-03-24] MEDS: Ipratropium/Albuterol 3 ML NEB NEB PRN (13:09)
[2023-03-24] MEDS: Senokot S 8.6-50 MG TAB PO SCH (20:53)
[2023-03-24] MEDS: Atorvastatin Calcium 10 MG TAB PO SCH (20:54)
[2023-03-24] MEDS ORDERED: Apixaban 2.5 MG TAB PO SCH (21:00)
[2023-03-25] MEDS: Levothyroxine Sodium 125 MCG TAB PO SCH (05:26)
[2023-03-25 05:41] LABS: Anion Gap 11 mmol/L (10-20); BUN (Urea Nitrogen) 43 mg/dL (9.8-20.1); Calc. Creatinine Clearance 28 mL/min (70-130); Carbon Dioxide 31 mmol/L (23-31); Chloride 98 mmol/L (98-107); Estimated GFR 20; Glucose 92 mg/dL (83-110); Potassium 3.8 mmol/L (3.5-5.1); Sodium 136 mmol/L (136-145)
[2023-03-25] MEDS: Ipratropium/Albuterol 3 ML NEB NEB PRN (06:39)
[2023-03-25] MEDS ORDERED: Furosemide 20 MG TAB PO SCH (07:30)
[2023-03-25] MEDS: Multivitamin W/ Minerals 1 TAB PO SCH (09:13)
[2023-03-25] MEDS: Amiodarone 200 MG TAB PO SCH ×2 (09:13→20:44)
[2023-03-25] MEDS: Cyanocobalamin (Vitamin B-12) 1,000 MCG TAB PO SCH (09:13)
[2023-03-25] MEDS: DULoxetine 20 MG CAP PO SCH (09:13)
[2023-03-25] MEDS: Loratadine 10 MG TAB PO SCH (09:13)
[2023-03-25] MEDS: Cholecalciferol 1,000 UNITS (25 MCG) TAB PO SCH (09:13)
[2023-03-25] MEDS: Famotidine 20 MG TAB PO SCH (09:14)
[2023-03-25] MEDS: guaiFENesin/DM ER PO SCH ×2 (09:14→20:44)
[2023-03-25] MEDS: Benzonatate 100 MG CAP PO SCH ×3 (09:18→20:44)
[2023-03-25] MEDS ORDERED: Ipratropium/Albuterol 3 ML NEB NEB PRN (09:29)
[2023-03-25] MEDS: Ipratropium/Albuterol 3 ML NEB NEB SCH ×3 (13:08→20:43)
[2023-03-25 14:54] LABS: Bilirubin Small (Negative); Blood, Urine Large (Negative); Glucose, Urine (Dipstick) Negative (Negative); Ketone, Urine Negative (Negative); Leukocyte Trace (Negative); Nitrite Negative (Negative); Protein, Urine (Dipstick) > or equal to 300 mg/dL (Neg-Trace); Urobilinogen 0.2 mg/dL (Less than 2); pH, Urine 5.5 (5.0-9.0)
[2023-03-25 15:30] LABS: CAUTI Indications for Culture Acute Hematuria; Clarity Cloudy (Clear); RBC/HPF Greater than 50 HPF (0-3); Squamous Epithelial 0-3 HPF (0-3); WBC/HPF 0-3 HPF (0-3)
[2023-03-25 15:31] LABS: Urine Culture Reflex No No
[2023-03-25 15:40] LABS: #Basophils 0.1 thou/uL (0.0-0.2); #Eosinphils 0.5 thou/uL (0.0-0.7); #Lymphocytes 2.4 thou/uL (1.20-3.40); #Monocytes 1.3 thou/uL (0.11-0.59); #Neutrophils 7.4 thou/uL (1.40-6.50); %Basophils 0.7 % (0.0-1.0); %Eosinophils 4.3 % (0.0-10.0); %Lymphocytes 20.9 % (21.0-51.0); %Monocytes 10.8 % (0.0-10.0); %Neutrophils 63.4 % (42.0-75.0); Hematocrit 32.4 % (36.0-47.0); Hemoglobin 10.2 g/dL (12.0-16.0); Mean Corpuscular HGB CONC 31.5 g/dL (32.0-36.0); Mean Corpuscular Hemoglobin 32.8 pg (27.0-31.0); Mean Platelet Volume 6.8 fL (7.4-10.4); Platelet Count 331 10x3/uL (130-400); RBC Distribution Width 12.7 % (11.5-14.5); Red Blood Cell (RBC) Count 3.11 mill/uL (4.20-5.40); White Blood Cell (WBC) Count 11.7 10x3/uL (4.8-10.8)
[2023-03-25] MEDS ORDERED: Azithromycin 250 MG TAB PO SCH (15:45)
[2023-03-25 16:28] LABS: Creatinine, Urine 99.14 mg/dL (47-110)
[2023-03-25] MEDS: Mometasone/Formoterol 200/5 60 PUFF INH SCH (20:42)
[2023-03-25] MEDS: predniSONE 20 MG TAB PO SCH (20:44)
[2023-03-25] MEDS: Atorvastatin Calcium 10 MG TAB PO SCH (20:44)
[2023-03-25] MEDS: Senokot S 8.6-50 MG TAB PO SCH (20:44)
[2023-03-26] MEDS: Ipratropium/Albuterol 3 ML NEB NEB SCH ×6 (01:15→21:09)
[2023-03-26] MEDS: Levothyroxine Sodium 125 MCG TAB PO SCH (05:17)
[2023-03-26 05:22] LABS: #Lymphocytes 0.7 thou/uL (1.20-3.40); #Monocytes 0.3 thou/uL (0.11-0.59); %Basophils 0.1 % (0.0-1.0); %Lymphocytes 6.3 % (21.0-51.0); %Monocytes 2.9 % (0.0-10.0); %Neutrophils 90.7 % (42.0-75.0); Hematocrit 29.2 % (36.0-47.0); Hemoglobin 9.4 g/dL (12.0-16.0); Mean Corpuscular HGB CONC 32.1 g/dL (32.0-36.0); Mean Corpuscular Hemoglobin 33.3 pg (27.0-31.0); Mean Platelet Volume 7.6 fL (7.4-10.4); Platelet Count 312 10x3/uL (130-400); RBC Distribution Width 12.2 % (11.5-14.5); Red Blood Cell (RBC) Count 2.83 mill/uL (4.20-5.40)
[2023-03-26 05:36] LABS: Anion Gap 12 mmol/L (10-20); BUN (Urea Nitrogen) 47 mg/dL (9.8-20.1); Calc. Creatinine Clearance 31 mL/min (70-130); Calcium 9.2 mg/dL (7.8-10.44); Carbon Dioxide 30 mmol/L (23-31); Chloride 100 mmol/L (98-107); Estimated GFR 22; Glucose 133 mg/dL (83-110); Potassium 4.9 mmol/L (3.5-5.1); Sodium 137 mmol/L (136-145)
[2023-03-26] MEDS ORDERED: Furosemide 20 MG TAB PO SCH (07:30)
[2023-03-26] MEDS: Multivitamin W/ Minerals 1 TAB PO SCH (08:29)
[2023-03-26] MEDS: DULoxetine 20 MG CAP PO SCH (08:29)
[2023-03-26] MEDS: Benzonatate 100 MG CAP PO SCH ×3 (08:29→22:14)
[2023-03-26] MEDS: Azithromycin 250 MG TAB PO SCH (08:30)
[2023-03-26] MEDS: Cholecalciferol 1,000 UNITS (25 MCG) TAB PO SCH (08:30)
[2023-03-26] MEDS: Cyanocobalamin (Vitamin B-12) 1,000 MCG TAB PO SCH (08:30)
[2023-03-26] MEDS: Famotidine 20 MG TAB PO SCH (08:30)
[2023-03-26] MEDS: predniSONE 20 MG TAB PO SCH ×2 (08:30→21:08)
[2023-03-26] MEDS: Amiodarone 200 MG TAB PO SCH ×2 (08:30→21:09)
[2023-03-26] MEDS: guaiFENesin/DM ER PO SCH ×2 (08:30→21:08)
[2023-03-26] MEDS: Loratadine 10 MG TAB PO SCH (08:30)
[2023-03-26] MEDS: Mometasone/Formoterol 200/5 60 PUFF INH SCH ×2 (08:30→21:09)
[2023-03-26] MEDS ORDERED: Aspirin 81 mg Enteric Coated Tablet PO SCH (09:00)
[2023-03-26] MEDS ORDERED: Benzonatate 100 MG CAP ONE ×2 (15:39→22:12)
[2023-03-26] MEDS: Senokot S 8.6-50 MG TAB PO SCH (21:08)
[2023-03-26] MEDS: Atorvastatin Calcium 10 MG TAB PO SCH (21:08)
[2023-03-27] MEDS: Ipratropium/Albuterol 3 ML NEB NEB SCH ×6 (01:25→20:31)
[2023-03-27] MEDS: Levothyroxine Sodium 125 MCG TAB PO SCH (05:31)
[2023-03-27] MEDS: Multivitamin W/ Minerals 1 TAB PO SCH (09:10)
[2023-03-27] MEDS: Cyanocobalamin (Vitamin B-12) 1,000 MCG TAB PO SCH (09:10)
[2023-03-27] MEDS: DULoxetine 20 MG CAP PO SCH (09:10)
[2023-03-27] MEDS: Cholecalciferol 1,000 UNITS (25 MCG) TAB PO SCH (09:10)
[2023-03-27] MEDS: guaiFENesin/DM ER PO SCH ×2 (09:11→20:30)
[2023-03-27] MEDS: Famotidine 20 MG TAB PO SCH (09:11)
[2023-03-27] MEDS: predniSONE 20 MG TAB PO SCH ×2 (09:11→20:30)
[2023-03-27] MEDS: Loratadine 10 MG TAB PO SCH (09:11)
[2023-03-27] MEDS: Amiodarone 200 MG TAB PO SCH ×2 (09:12→20:30)
[2023-03-27] MEDS: Benzonatate 100 MG CAP PO SCH ×3 (09:13→20:30)
[2023-03-27] MEDS: Mometasone/Formoterol 200/5 60 PUFF INH SCH ×2 (09:15→20:32)
[2023-03-27 09:32] LABS: Anion Gap 16 mmol/L (10-20); BUN (Urea Nitrogen) 51 mg/dL (9.8-20.1); Calc. Creatinine Clearance 32 mL/min (70-130); Calcium 9.5 mg/dL (7.8-10.44); Carbon Dioxide 27 mmol/L (23-31); Chloride 101 mmol/L (98-107); Estimated GFR 23; Glucose 106 mg/dL (83-110); Potassium 4.5 mmol/L (3.5-5.1); Sodium 139 mmol/L (136-145)
[2023-03-27] MEDS: Azithromycin 250 MG TAB PO SCH (09:34)
[2023-03-27 11:37] LABS: Hemoglobin 9.2 g/dL (12.0-16.0); Red Blood Cell (RBC) Count 2.78 mill/uL (4.20-5.40); White Blood Cell (WBC) Count 13.7 10x3/uL (4.8-10.8)
[2023-03-27 11:38] LABS: #Lymphocytes 0.9 thou/uL (1.20-3.40); #Monocytes 0.6 thou/uL (0.11-0.59); #Neutrophils 12.2 thou/uL (1.40-6.50); %Basophils 0.1 % (0.0-1.0); %Lymphocytes 6.3 % (21.0-51.0); %Monocytes 4.3 % (0.0-10.0); %Neutrophils 89.3 % (42.0-75.0); Hematocrit 29.1 % (36.0-47.0); Manual Diff?? NO; Mean Corpuscular HGB CONC 31.7 g/dL (32.0-36.0); Mean Corpuscular Hemoglobin 33.2 pg (27.0-31.0); Mean Platelet Volume 7.4 fL (7.4-10.4); Platelet Count 340 10x3/uL (130-400); RBC Distribution Width 12.8 % (11.5-14.5)
[2023-03-27] MEDS: Atorvastatin Calcium 10 MG TAB PO SCH (20:30)
[2023-03-27] MEDS: Senokot S 8.6-50 MG TAB PO SCH (20:31)
[2023-03-28] MEDS: Ipratropium/Albuterol 3 ML NEB NEB SCH ×6 (00:56→20:15)
[2023-03-28 05:50] LABS: #Lymphocytes 0.7 thou/uL (1.20-3.40); #Monocytes 0.5 thou/uL (0.11-0.59); #Neutrophils 10.5 thou/uL (1.40-6.50); %Basophils 0.1 % (0.0-1.0); %Lymphocytes 6.1 % (21.0-51.0); %Neutrophils 89.7 % (42.0-75.0); Hematocrit 28.8 % (36.0-47.0); Mean Corpuscular HGB CONC 31.1 g/dL (32.0-36.0); Mean Corpuscular Hemoglobin 32.5 pg (27.0-31.0); Mean Platelet Volume 7.4 fL (7.4-10.4); Platelet Count 342 10x3/uL (130-400); RBC Distribution Width 12.5 % (11.5-14.5); Red Blood Cell (RBC) Count 2.76 mill/uL (4.20-5.40); White Blood Cell (WBC) Count 11.8 10x3/uL (4.8-10.8)
[2023-03-28 06:00] LABS: Anion Gap 13 mmol/L (10-20); BUN (Urea Nitrogen) 55 mg/dL (9.8-20.1); Calc. Creatinine Clearance 34 mL/min (70-130); Calcium 9.3 mg/dL (7.8-10.44); Carbon Dioxide 29 mmol/L (23-31); Chloride 104 mmol/L (98-107); Estimated GFR 24; Glucose 122 mg/dL (83-110); Potassium 5.1 mmol/L (3.5-5.1); Sodium 141 mmol/L (136-145)
[2023-03-28] MEDS: Levothyroxine Sodium 125 MCG TAB PO SCH (06:03)
[2023-03-28] MEDS: Mometasone/Formoterol 200/5 60 PUFF INH SCH ×2 (08:09→20:15)
[2023-03-28] MEDS: Loratadine 10 MG TAB PO SCH (08:10)
[2023-03-28] MEDS: Multivitamin W/ Minerals 1 TAB PO SCH (08:11)
[2023-03-28] MEDS: Benzonatate 100 MG CAP PO SCH ×3 (08:11→20:15)
[2023-03-28] MEDS: guaiFENesin/DM ER PO SCH ×2 (08:11→20:15)
[2023-03-28] MEDS: DULoxetine 20 MG CAP PO SCH (08:12)
[2023-03-28] MEDS: Cyanocobalamin (Vitamin B-12) 1,000 MCG TAB PO SCH (08:12)
[2023-03-28] MEDS: Famotidine 20 MG TAB PO SCH (08:12)
[2023-03-28] MEDS: predniSONE 20 MG TAB PO SCH ×2 (08:12→20:15)
[2023-03-28] MEDS: Amiodarone 200 MG TAB PO SCH ×2 (08:13→20:15)
[2023-03-28] MEDS: Azithromycin 250 MG TAB PO SCH (08:13)
[2023-03-28] MEDS: Bisacodyl 5 MG TAB PO PRN (15:03)
[2023-03-28] MEDS: Senokot S 8.6-50 MG TAB PO SCH (20:15)
[2023-03-28] MEDS: Atorvastatin Calcium 10 MG TAB PO SCH (20:16)
[2023-03-29] MEDS: Ipratropium/Albuterol 3 ML NEB NEB SCH ×6 (00:48→21:21)
[2023-03-29] MEDS: Levothyroxine Sodium 125 MCG TAB PO SCH (05:26)
[2023-03-29] MEDS: Famotidine 20 MG TAB PO SCH (09:13)
[2023-03-29] MEDS: Benzonatate 100 MG CAP PO SCH ×3 (09:13→21:22)
[2023-03-29] MEDS: Azithromycin 250 MG TAB PO SCH (09:13)
[2023-03-29] MEDS: Amiodarone 200 MG TAB PO SCH ×2 (09:13→21:22)
[2023-03-29] MEDS: Loratadine 10 MG TAB PO SCH (09:14)
[2023-03-29] MEDS: guaiFENesin/DM ER PO SCH (09:14)
[2023-03-29] MEDS: Cholecalciferol 1,000 UNITS (25 MCG) TAB PO SCH (09:14)
[2023-03-29] MEDS: predniSONE 20 MG TAB PO SCH ×2 (09:14→21:22)
[2023-03-29] MEDS: DULoxetine 20 MG CAP PO SCH (09:14)
[2023-03-29] MEDS: Cyanocobalamin (Vitamin B-12) 1,000 MCG TAB PO SCH (09:15)
[2023-03-29] MEDS: Mometasone/Formoterol 200/5 60 PUFF INH SCH ×2 (09:16→21:19)
[2023-03-29] MEDS: Atorvastatin Calcium 10 MG TAB PO SCH (21:22)
[2023-03-29] MEDS: Senokot S 8.6-50 MG TAB PO SCH (21:22)
[2023-03-29] MEDS: Acetaminophen 325 MG TAB PO PRN (23:45)
[2023-03-30] MEDS: Ipratropium/Albuterol 3 ML NEB NEB SCH ×6 (01:00→21:29)
[2023-03-30] MEDS: Levothyroxine Sodium 125 MCG TAB PO SCH (05:50)
[2023-03-30] MEDS: predniSONE 20 MG TAB PO SCH (08:25)
[2023-03-30] MEDS: Loratadine 10 MG TAB PO SCH (08:25)
[2023-03-30] MEDS: Benzonatate 100 MG CAP PO SCH ×3 (08:25→21:28)
[2023-03-30] MEDS: DULoxetine 20 MG CAP PO SCH (08:25)
[2023-03-30] MEDS: Amiodarone 200 MG TAB PO SCH ×2 (08:26→21:28)
[2023-03-30] MEDS: Cholecalciferol 1,000 UNITS (25 MCG) TAB PO SCH (08:26)
[2023-03-30] MEDS: Cyanocobalamin (Vitamin B-12) 1,000 MCG TAB PO SCH (08:26)
[2023-03-30] MEDS: Famotidine 20 MG TAB PO SCH (08:26)
[2023-03-30] MEDS: Acetaminophen 325 MG TAB PO PRN ×2 (08:26→21:26)
[2023-03-30] MEDS: Mometasone/Formoterol 200/5 60 PUFF INH SCH ×2 (08:36→21:33)
[2023-03-30 13:08] LABS: Anion Gap 14 mmol/L (10-20); BUN (Urea Nitrogen) 51 mg/dL (9.8-20.1); Calc. Creatinine Clearance 42 mL/min (70-130); Calcium 10.2 mg/dL (7.8-10.44); Carbon Dioxide 24 mmol/L (23-31); Chloride 108 mmol/L (98-107); Estimated GFR 32; Glucose 97 mg/dL (83-110); Potassium 4.7 mmol/L (3.5-5.1); Sodium 141 mmol/L (136-145)
[2023-03-30] MEDS: Senokot S 8.6-50 MG TAB PO SCH (21:27)
[2023-03-30] MEDS: Atorvastatin Calcium 10 MG TAB PO SCH (21:28)
[2023-03-31] MEDS: Ipratropium/Albuterol 3 ML NEB NEB SCH ×6 (01:44→21:55)
[2023-03-31] MEDS: Acetaminophen 325 MG TAB PO PRN ×4 (01:44→22:16)
[2023-03-31] MEDS: Levothyroxine Sodium 125 MCG TAB PO SCH (05:49)
[2023-03-31] MEDS: Mometasone/Formoterol 200/5 60 PUFF INH SCH ×2 (08:13→21:56)
[2023-03-31] MEDS: Amiodarone 200 MG TAB PO SCH ×2 (08:15→21:55)
[2023-03-31] MEDS: Loratadine 10 MG TAB PO SCH (08:15)
[2023-03-31] MEDS: DULoxetine 20 MG CAP PO SCH (08:15)
[2023-03-31] MEDS: Benzonatate 100 MG CAP PO SCH ×3 (08:15→21:55)
[2023-03-31] MEDS: Cholecalciferol 1,000 UNITS (25 MCG) TAB PO SCH (08:16)
[2023-03-31] MEDS: Cyanocobalamin (Vitamin B-12) 1,000 MCG TAB PO SCH (08:16)
[2023-03-31] MEDS: Famotidine 20 MG TAB PO SCH (08:16)
[2023-03-31] MEDS ORDERED: Amiodarone 200 MG TAB PO SCH (09:00)
[2023-03-31 10:48] LABS: Anion Gap 15 mmol/L (10-20); BUN (Urea Nitrogen) 49 mg/dL (9.8-20.1); Calc. Creatinine Clearance 42 mL/min (70-130); Calcium 9.6 mg/dL (7.8-10.44); Carbon Dioxide 23 mmol/L (23-31); Chloride 110 mmol/L (98-107); Estimated GFR 33; Glucose 93 mg/dL (83-110); Potassium 4.2 mmol/L (3.5-5.1); Sodium 144 mmol/L (136-145)
[2023-03-31] MEDS: Atorvastatin Calcium 10 MG TAB PO SCH (21:55)
[2023-03-31] MEDS: Senokot S 8.6-50 MG TAB PO SCH (21:55)
[2023-04-01] MEDS: Ipratropium/Albuterol 3 ML NEB NEB SCH ×4 (00:32→18:35)
[2023-04-01] MEDS: Levothyroxine Sodium 125 MCG TAB PO SCH (05:40)
[2023-04-01 06:11] LABS: Hematocrit 30.1 % (36.0-47.0); Hemoglobin 9.3 g/dL (12.0-16.0); Mean Corpuscular HGB CONC 30.9 g/dL (32.0-36.0); Mean Corpuscular Hemoglobin 32.4 pg (27.0-31.0); Platelet Count 313 10x3/uL (130-400); Red Blood Cell (RBC) Count 2.87 mill/uL (4.20-5.40); White Blood Cell (WBC) Count 11.6 10x3/uL (4.8-10.8)
[2023-04-01 06:12] LABS: %Lymphocytes 13.9 % (21.0-51.0); %Neutrophils 70.5 % (42.0-75.0); Anion Gap 11 mmol/L (10-20); BUN (Urea Nitrogen) 41 mg/dL (9.8-20.1); Calc. Creatinine Clearance 46 mL/min (70-130); Calcium 9.5 mg/dL (7.8-10.44); Carbon Dioxide 26 mmol/L (23-31); Chloride 112 mmol/L (98-107); Estimated GFR 36; Glucose 85 mg/dL (83-110); Manual Diff?? NO; Mean Platelet Volume 6.9 fL (7.4-10.4); Potassium 4.4 mmol/L (3.5-5.1); Sodium 145 mmol/L (136-145)
[2023-04-01 06:13] LABS: #Basophils 0.1 thou/uL (0.0-0.2); #Eosinphils 0.6 thou/uL (0.0-0.7); #Lymphocytes 1.6 thou/uL (1.20-3.40); #Monocytes 1.1 thou/uL (0.11-0.59); #Neutrophils 8.2 thou/uL (1.40-6.50); %Basophils 0.5 % (0.0-1.0); %Eosinophils 5.6 % (0.0-10.0); %Monocytes 9.6 % (0.0-10.0)
[2023-04-01] MEDS: Mometasone/Formoterol 200/5 60 PUFF INH SCH ×2 (10:16→20:22)
[2023-04-01] MEDS: Loratadine 10 MG TAB PO SCH (10:17)
[2023-04-01] MEDS: DULoxetine 20 MG CAP PO SCH (10:17)
[2023-04-01] MEDS: Cyanocobalamin (Vitamin B-12) 1,000 MCG TAB PO SCH (10:18)
[2023-04-01] MEDS: Cholecalciferol 1,000 UNITS (25 MCG) TAB PO SCH (10:18)
[2023-04-01] MEDS: Famotidine 20 MG TAB PO SCH (10:18)
[2023-04-01] MEDS: Amiodarone 200 MG TAB PO SCH ×2 (10:18→20:23)
[2023-04-01] MEDS: Benzonatate 100 MG CAP PO SCH ×3 (10:18→20:23)
[2023-04-01] MEDS: Acetaminophen 325 MG TAB PO PRN (10:23)
[2023-04-01] MEDS: Atorvastatin Calcium 10 MG TAB PO SCH (20:23)
[2023-04-01] MEDS: Senokot S 8.6-50 MG TAB PO SCH (20:23)
[2023-04-02] MEDS: Ipratropium/Albuterol 3 ML NEB NEB SCH ×5 (01:07→23:50)
[2023-04-02] MEDS: Levothyroxine Sodium 125 MCG TAB PO SCH (06:17)
[2023-04-02] MEDS: Mometasone/Formoterol 200/5 60 PUFF INH SCH ×2 (08:16→20:39)
[2023-04-02] MEDS: DULoxetine 20 MG CAP PO SCH (08:17)
[2023-04-02] MEDS: Benzonatate 100 MG CAP PO SCH ×3 (08:18→20:41)
[2023-04-02] MEDS: Amiodarone 200 MG TAB PO SCH ×2 (08:18→20:42)
[2023-04-02] MEDS: Cholecalciferol 1,000 UNITS (25 MCG) TAB PO SCH (08:19)
[2023-04-02] MEDS: Loratadine 10 MG TAB PO SCH (08:19)
[2023-04-02] MEDS: Cyanocobalamin (Vitamin B-12) 1,000 MCG TAB PO SCH (08:19)
[2023-04-02] MEDS: Famotidine 20 MG TAB PO SCH (08:19)
[2023-04-02] MEDS: Senokot S 8.6-50 MG TAB PO SCH (20:42)
[2023-04-02] MEDS: Atorvastatin Calcium 10 MG TAB PO SCH (20:42)
[2023-04-03] MEDS: Levothyroxine Sodium 125 MCG TAB PO SCH (06:15)
[2023-04-03] MEDS: Ipratropium/Albuterol 3 ML NEB NEB SCH ×3 (06:15→18:09)
[2023-04-03] MEDS: Benzonatate 100 MG CAP PO SCH ×3 (09:09→21:14)
[2023-04-03] MEDS: DULoxetine 20 MG CAP PO SCH (09:09)
[2023-04-03] MEDS: Amiodarone 200 MG TAB PO SCH ×2 (09:10→21:14)
[2023-04-03] MEDS: Loratadine 10 MG TAB PO SCH (09:10)
[2023-04-03] MEDS: Cholecalciferol 1,000 UNITS (25 MCG) TAB PO SCH (09:11)
[2023-04-03] MEDS: Famotidine 20 MG TAB PO SCH (09:11)
[2023-04-03] MEDS: Cyanocobalamin (Vitamin B-12) 1,000 MCG TAB PO SCH (09:11)
[2023-04-03] MEDS: Mometasone/Formoterol 200/5 60 PUFF INH SCH ×2 (09:12→21:14)
[2023-04-03] MEDS: Atorvastatin Calcium 10 MG TAB PO SCH (21:14)
[2023-04-03] MEDS: Senokot S 8.6-50 MG TAB PO SCH (21:14)
[2023-04-04] MEDS: Ipratropium/Albuterol 3 ML NEB NEB SCH ×5 (00:51→23:36)
[2023-04-04] MEDS: Levothyroxine Sodium 125 MCG TAB PO SCH (05:48)
[2023-04-04 06:10] LABS: #Lymphocytes 1.6 thou/uL (1.20-3.40); #Monocytes 1.2 thou/uL (0.11-0.59); %Basophils 0.3 % (0.0-1.0); %Eosinophils 8.9 % (0.0-10.0); %Lymphocytes 14.8 % (21.0-51.0); %Monocytes 11.3 % (0.0-10.0); %Neutrophils 64.7 % (42.0-75.0); Hematocrit 29.5 % (36.0-47.0); Hemoglobin 9.3 g/dL (12.0-16.0); Mean Corpuscular HGB CONC 31.4 g/dL (32.0-36.0); Mean Platelet Volume 7.5 fL (7.4-10.4); Platelet Count 253 10x3/uL (130-400); RBC Distribution Width 13.4 % (11.5-14.5); Red Blood Cell (RBC) Count 2.81 mill/uL (4.20-5.40); White Blood Cell (WBC) Count 10.8 10x3/uL (4.8-10.8)
[2023-04-04 06:24] LABS: Anion Gap 11 mmol/L (10-20); BUN (Urea Nitrogen) 31 mg/dL (9.8-20.1); Calc. Creatinine Clearance 49 mL/min (70-130); Calcium 9.2 mg/dL (7.8-10.44); Carbon Dioxide 24 mmol/L (23-31); Chloride 112 mmol/L (98-107); Estimated GFR 38; Glucose 91 mg/dL (83-110); Potassium 4.2 mmol/L (3.5-5.1); Sodium 143 mmol/L (136-145)
[2023-04-04] MEDS: Benzonatate 100 MG CAP PO SCH ×3 (08:56→20:53)
[2023-04-04] MEDS: DULoxetine 20 MG CAP PO SCH (08:56)
[2023-04-04] MEDS: Cyanocobalamin (Vitamin B-12) 1,000 MCG TAB PO SCH (08:56)
[2023-04-04] MEDS: Loratadine 10 MG TAB PO SCH (08:56)
[2023-04-04] MEDS: Famotidine 20 MG TAB PO SCH (08:56)
[2023-04-04] MEDS: Amiodarone 200 MG TAB PO SCH ×2 (08:57→20:53)
[2023-04-04] MEDS: Mometasone/Formoterol 200/5 60 PUFF INH SCH ×2 (09:00→20:54)
[2023-04-04] MEDS: Atorvastatin Calcium 10 MG TAB PO SCH (20:52)
[2023-04-04] MEDS: Senokot S 8.6-50 MG TAB PO SCH (20:52)
[2023-04-05] MEDS: Levothyroxine Sodium 125 MCG TAB PO SCH (05:44)
[2023-04-05] MEDS: Ipratropium/Albuterol 3 ML NEB NEB SCH ×3 (05:45→17:40)
[2023-04-05] MEDS: DULoxetine 20 MG CAP PO SCH (08:48)
[2023-04-05] MEDS: Cholecalciferol 1,000 UNITS (25 MCG) TAB PO SCH (08:49)
[2023-04-05] MEDS: Loratadine 10 MG TAB PO SCH (08:49)
[2023-04-05] MEDS: Famotidine 20 MG TAB PO SCH (08:49)
[2023-04-05] MEDS: Mometasone/Formoterol 200/5 60 PUFF INH SCH ×2 (08:49→20:08)
[2023-04-05] MEDS: Benzonatate 100 MG CAP PO SCH ×3 (08:49→20:08)
[2023-04-05] MEDS: Amiodarone 200 MG TAB PO SCH ×2 (08:49→20:08)
[2023-04-05] MEDS: Cyanocobalamin (Vitamin B-12) 1,000 MCG TAB PO SCH (08:49)
[2023-04-05 09:02] VITALS: BMI 34.8
[2023-04-05] MEDS: Atorvastatin Calcium 10 MG TAB PO SCH (20:08)
[2023-04-05] MEDS: Senokot S 8.6-50 MG TAB PO SCH (20:08)
[2023-04-06] MEDS: Ipratropium/Albuterol 3 ML NEB NEB SCH ×5 (00:05→23:39)
[2023-04-06] MEDS: Levothyroxine Sodium 125 MCG TAB PO SCH (05:44)
[2023-04-06] MEDS: Cholecalciferol 1,000 UNITS (25 MCG) TAB PO SCH (08:02)
[2023-04-06] MEDS: Famotidine 20 MG TAB PO SCH (08:02)
[2023-04-06] MEDS: Loratadine 10 MG TAB PO SCH (08:02)
[2023-04-06] MEDS: Mometasone/Formoterol 200/5 60 PUFF INH SCH ×2 (08:02→21:10)
[2023-04-06] MEDS: Benzonatate 100 MG CAP PO SCH ×3 (08:02→21:10)
[2023-04-06] MEDS: DULoxetine 20 MG CAP PO SCH (08:02)
[2023-04-06] MEDS: Cyanocobalamin (Vitamin B-12) 1,000 MCG TAB PO SCH (08:02)
[2023-04-06] MEDS: Amiodarone 200 MG TAB PO SCH ×2 (08:02→21:09)
[2023-04-06] MEDS: Bisacodyl 5 MG TAB PO PRN (08:12)
[2023-04-06] MEDS: Atorvastatin Calcium 10 MG TAB PO SCH (21:09)
[2023-04-06] MEDS: Senokot S 8.6-50 MG TAB PO SCH (21:09)
[2023-04-07] MEDS: Ipratropium/Albuterol 3 ML NEB NEB SCH ×2 (05:45→11:29)
[2023-04-07] MEDS: Levothyroxine Sodium 125 MCG TAB PO SCH (05:45)
[2023-04-07] MEDS: DULoxetine 20 MG CAP PO SCH (08:37)
[2023-04-07] MEDS: Amiodarone 200 MG TAB PO SCH (08:37)
[2023-04-07] MEDS: Mometasone/Formoterol 200/5 60 PUFF INH SCH (08:38)
[2023-04-07] MEDS: Cyanocobalamin (Vitamin B-12) 1,000 MCG TAB PO SCH (08:38)
[2023-04-07] MEDS: Cholecalciferol 1,000 UNITS (25 MCG) TAB PO SCH (08:38)
[2023-04-07] MEDS: Loratadine 10 MG TAB PO SCH (08:38)
[2023-04-07] MEDS: Famotidine 20 MG TAB PO SCH (08:38)
[2023-04-07] MEDS: Benzonatate 100 MG CAP PO SCH ×2 (08:38→16:06)
[2023-04-07 14:03] VITALS: BP 147/60; TEMP 98.2
== END 2023-04-07 13:54 | DRG 947 ==
LOC: NAV ACUTE 13:39
PROVIDERS: ADMIT Family Medicine; ATTEND Family Medicine
DX: R53.81 Other malaise (principal); J96.01 Acute respiratory failure with hypoxia; I50.32 Chronic diastolic (congestive) heart failure; N17.9 Acute kidney failure, unspecified; I13.0 Hypertensive heart and chronic kidney disease with heart failure and stage 1 through stage 4 chronic kidney disease, or unspecified chronic kidney disease; E78.5 Hyperlipidemia, unspecified; E03.9 Hypothyroidism, unspecified; M19.90 Unspecified osteoarthritis, unspecified site; I48.91 Unspecified atrial fibrillation; Z96.653 Presence of artificial knee joint, bilateral; Z98.890 Other specified postprocedural states; Z88.8 Allergy status to other drugs, medicaments and biological substances; Z79.899 Other long term (current) drug therapy; Z79.01 Long term (current) use of anticoagulants; Z79.82 Long term (current) use of aspirin; N32.81 Overactive bladder; N18.9 Chronic kidney disease, unspecified; R31.0 Gross hematuria; D63.1 Anemia in chronic kidney disease; J44.9 Chronic obstructive pulmonary disease, unspecified
CPT/HCPCS: 36415; 71045; 80048; 80053; 81001; 82570; 83880; 84540; 85025; 94640; 94664; J7512; J7620

== ENCOUNTER 2023-05-22 13:11 | Emergency (ER) | payer MEDICARE ==
[2023-05-22] MEDS ORDERED: traMADol HCl 50 MG TAB ONE (14:18)
[2023-05-22] MEDS ORDERED: fentaNYL 50 mcg/mL 1 mL Vial ONE (15:55)
[2023-05-22] MEDS ORDERED: Lidocaine 1% (PF) 30 ML VIAL ONE (16:11)
== END 2023-05-22 17:25 | disposition home or self-care (01) ==
LOC: NAV ERS 13:11
DX: S52.572A Other intraarticular fracture of lower end of left radius, initial encounter for closed fracture (principal); S52.602A Unspecified fracture of lower end of left ulna, initial encounter for closed fracture; E03.9 Hypothyroidism, unspecified; K21.9 Gastro-esophageal reflux disease without esophagitis; E78.00 Pure hypercholesterolemia, unspecified; I10 Essential (primary) hypertension; Z79.899 Other long term (current) drug therapy; Z79.82 Long term (current) use of aspirin; W01.10XA Fall on same level from slipping, tripping and stumbling with subsequent striking against unspecified object, initial encounter
CPT/HCPCS: 25605; 73070; 73100; 73110; 99283; J3010; J2001

== ENCOUNTER 2023-05-29 16:32 | Emergency (ER) | payer MEDICARE | END 2023-05-29 17:56 | disposition home or self-care (01) | LOC: NAV ERS 16:32 | DX: S52.532A Colles' fracture of left radius, initial encounter for closed fracture (principal); E78.00 Pure hypercholesterolemia, unspecified; E03.9 Hypothyroidism, unspecified; I10 Essential (primary) hypertension; Z79.899 Other long term (current) drug therapy; Z79.82 Long term (current) use of aspirin; W19.XXXA Unspecified fall, initial encounter | CPT/HCPCS: 29105 ==

== ENCOUNTER 2024-01-29 07:07 | Inpatient (IN) | payer MEDICARE ==
[2024-01-29] MEDS ORDERED: Polyethylene Glycol 3350 17 GM Packet PO PRN (07:52)
[2024-01-29] MEDS ORDERED: Senokot S 8.6-50 MG TAB PO PRN (12:54)
[2024-01-29] MEDS: Famotidine 20 MG TAB PO SCH (15:31)
[2024-01-29] MEDS: Mometasone 200 MCG/Formoterol 5 MCG 60 PUFF INHALER INH SCH (15:31)
[2024-01-29] MEDS: Amiodarone 200 MG TAB PO SCH (20:52)
[2024-01-29] MEDS: Atorvastatin Calcium 10 MG TAB PO SCH (20:52)
[2024-01-30] MEDS: Levothyroxine Sodium 125 MCG TAB PO SCH (05:15)
[2024-01-30 05:57] LABS: #Basophils 0.1 thou/uL (0.0-0.2); #Eosinophils 0.4 thou/uL (0.0-0.7); #Lymphocytes 2.2 thou/uL (1.20-3.40); #Monocytes 1.1 thou/uL (0.11-0.59); #Neutrophils 6.1 thou/uL (1.40-6.50); %Basophils 1.1 % (0.0-1.0); %Eosinophils 3.9 % (0.0-10.0); %Lymphocytes 21.9 % (21.0-51.0); %Monocytes 10.7 % (0.0-10.0); %Neutrophils 62.3 % (42.0-75.0); Hematocrit 40.1 % (36.0-47.0); Hemoglobin 12.6 g/dL (12.0-16.0); Mean Corpuscular HGB CONC 31.4 g/dL (32.0-36.0); Mean Corpuscular Hemoglobin 31.7 pg (27.0-31.0); Mean Platelet Volume 7.2 fL (7.4-10.4); Platelet Count 268 10x3/uL (130-400); Red Blood Cell (RBC) Count 3.98 mill/uL (4.20-5.40); White Blood Cell (WBC) Count 9.8 10x3/uL (4.8-10.8)
[2024-01-30 06:21] LABS: ALT (SGPT) 26 U/L (8-55); AST (SGOT) 23 U/L (5-34); Albumin 3.6 g/dL (3.4-4.8); Alkaline Phosphatase 83 U/L (40-110); Anion Gap 15 mmol/L (10-20); BUN (Urea Nitrogen) 31 mg/dL (9.8-20.1); Bilirubin, Total 0.4 mg/dL (0.2-1.2); Calc. Creatinine Clearance 40 mL/min (70-130); Calcium 10.2 mg/dL (7.8-10.44); Carbon Dioxide 30 mmol/L (23-31); Chloride 99 mmol/L (98-107); Estimated GFR 32; Globulin 3.2 g/dL (2.4-3.5); Glucose 80 mg/dL (83-110); Potassium 4.2 mmol/L (3.5-5.1); Protein, Total 6.8 g/dL (5.8-8.1); Sodium 140 mmol/L (136-145)
[2024-01-30] MEDS: Multivitamin W/ Minerals 1 TAB PO SCH (08:15)
[2024-01-30] MEDS: Loratadine 10 MG TAB PO SCH (08:15)
[2024-01-30] MEDS: DULoxetine 20 MG CAP PO SCH (08:15)
[2024-01-30] MEDS: Mirabegron ER 25 MG ER.TAB PO SCH (08:15)
[2024-01-30] MEDS: Enoxaparin 40 MG (0.4 mL) SYRINGE SC SCH (08:15)
[2024-01-30] MEDS: Aspirin 81 mg Enteric Coated Tablet PO SCH (08:15)
[2024-01-30] MEDS: Cyanocobalamin (Vitamin B-12) 1,000 MCG TAB PO SCH (08:16)
[2024-01-30] MEDS: Acetaminophen 325 MG TAB PO PRN (08:27)
[2024-01-30] MEDS: GUAIFENESIN SF SOLN 200 MG/10 ML UDCUP PO PRN (18:24)
[2024-01-30] MEDS: Ipratropium/Albuterol 3 ML NEB NEB PRN (18:25)
[2024-01-31] MEDS: Enoxaparin 30 MG (0.3 mL) SYRINGE SC SCH (08:47)
[2024-01-31] MEDS: Cholecalciferol 1,000 UNITS (25 MCG) TAB PO SCH (08:49)
[2024-02-02] MEDS: Acetaminophen 325 MG TAB PO PRN (12:48)
[2024-02-03] MEDS: Polyethylene Glycol OPTH DROP 15 ML BOT EA EYE PRN (08:09)
[2024-02-03] MEDS ORDERED: hydrALAZINE 10 MG TAB PO PRN (17:08)
[2024-02-03] MEDS: Amiodarone 200 MG TAB PO SCH (19:16)
[2024-02-05 06:07] LABS: #Basophils 0.1 thou/uL (0.0-0.2); #Eosinophils 0.4 thou/uL (0.0-0.7); #Lymphocytes 1.3 thou/uL (1.20-3.40); #Monocytes 0.8 thou/uL (0.11-0.59); #Neutrophils 4.6 thou/uL (1.40-6.50); %Basophils 1.1 % (0.0-1.0); %Lymphocytes 17.6 % (21.0-51.0); %Monocytes 11.3 % (0.0-10.0); Hematocrit 36.8 % (36.0-47.0); Hemoglobin 11.5 g/dL (12.0-16.0); Mean Corpuscular HGB CONC 31.2 g/dL (32.0-36.0); Mean Corpuscular Hemoglobin 31.7 pg (27.0-31.0); Mean Platelet Volume 8.7 fL (7.4-10.4); Platelet Count 227 10x3/uL (130-400); RBC Distribution Width 14.4 % (11.5-14.5); Red Blood Cell (RBC) Count 3.61 mill/uL (4.20-5.40); White Blood Cell (WBC) Count 7.2 10x3/uL (4.8-10.8)
[2024-02-05 06:15] LABS: ALT (SGPT) 25 U/L (8-55); AST (SGOT) 22 U/L (5-34); Albumin 3.6 g/dL (3.4-4.8); Alkaline Phosphatase 77 U/L (40-110); Anion Gap 13 mmol/L (10-20); BUN (Urea Nitrogen) 31 mg/dL (9.8-20.1); Bilirubin, Total 0.3 mg/dL (0.2-1.2); Calc. Creatinine Clearance 45 mL/min (70-130); Calcium 10.1 mg/dL (7.8-10.44); Carbon Dioxide 23 mmol/L (23-31); Chloride 109 mmol/L (98-107); Estimated GFR 39; Globulin 3.5 g/dL (2.4-3.5); Glucose 83 mg/dL (83-110); Potassium 4.6 mmol/L (3.5-5.1); Protein, Total 7.1 g/dL (5.8-8.1); Sodium 140 mmol/L (136-145)
[2024-02-07] MEDS: Amiodarone 200 MG TAB PO SCH (09:25)
[2024-02-09] MEDS: Enoxaparin 40 MG (0.4 mL) SYRINGE SC SCH (09:35)
[2024-02-10] MEDS: Fluticasone Propionate Nasal Spray 16 gm Bottle NASAL SCH (10:01)
[2024-02-10] MEDS: Albuterol 2.5 MG (3 mL) NEB NEB PRN (18:42)
[2024-02-11] MEDS: Fluticasone Propionate Nasal Spray 16 gm Bottle NASAL SCH (08:57)
[2024-02-12 06:18] LABS: ALT (SGPT) 28 U/L (8-55); AST (SGOT) 28 U/L (5-34); Albumin 3.1 g/dL (3.4-4.8); Alkaline Phosphatase 70 U/L (40-110); Anion Gap 11 mmol/L (10-20); BUN (Urea Nitrogen) 19 mg/dL (9.8-20.1); Bilirubin, Total 0.3 mg/dL (0.2-1.2); Calc. Creatinine Clearance 54 mL/min (70-130); Carbon Dioxide 20 mmol/L (23-31); Chloride 110 mmol/L (98-107); Estimated GFR 49; Globulin 3.7 g/dL (2.4-3.5); Glucose 83 mg/dL (83-110); Potassium 3.9 mmol/L (3.5-5.1); Protein, Total 6.8 g/dL (5.8-8.1); Sodium 137 mmol/L (136-145)
[2024-02-12 12:10] VITALS: BMI 35.9
[2024-02-13 10:59] LABS: #Eosinophils 0.1 thou/uL (0.0-0.7); #Lymphocytes 2.3 thou/uL (1.20-3.40); #Monocytes 0.8 thou/uL (0.11-0.59); #Neutrophils 3.5 thou/uL (1.40-6.50); %Basophils 0.6 % (0.0-1.0); %Eosinophils 1.5 % (0.0-10.0); %Lymphocytes 34.2 % (21.0-51.0); %Monocytes 11.6 % (0.0-10.0); %Neutrophils 52.2 % (42.0-75.0); Hematocrit 37.7 % (36.0-47.0); Hemoglobin 11.6 g/dL (12.0-16.0); Mean Corpuscular HGB CONC 30.8 g/dL (32.0-36.0); Mean Corpuscular Hemoglobin 31.1 pg (27.0-31.0); Platelet Count 199 10x3/uL (130-400); RBC Distribution Width 13.9 % (11.5-14.5); Red Blood Cell (RBC) Count 3.74 mill/uL (4.20-5.40); White Blood Cell (WBC) Count 6.6 10x3/uL (4.8-10.8)
[2024-02-15 03:38] VITALS: BMI 35.3
[2024-02-15 07:15] VITALS: BP 125/63; TEMP 98.2
== END 2024-02-15 13:11 | disposition home or self-care (01) | DRG 945 ==
LOC: NAV ACUTE 13:28
PROVIDERS: ADMIT Student in an Organized Health Care Education/Training Program; ATTEND Student in an Organized Health Care Education/Training Program
PROC: F07Z9ZZ Gait Training/Functional Ambulation Treatment (ICD-10-PCS; principal; 2024-02-10)
DX: R53.81 Other malaise (principal); I13.0 Hypertensive heart and chronic kidney disease with heart failure and stage 1 through stage 4 chronic kidney disease, or unspecified chronic kidney disease; I50.32 Chronic diastolic (congestive) heart failure; E78.5 Hyperlipidemia, unspecified; Z66 Do not resuscitate; N18.32 Chronic kidney disease, stage 3b; E03.9 Hypothyroidism, unspecified; I48.91 Unspecified atrial fibrillation; Z96.653 Presence of artificial knee joint, bilateral; N32.81 Overactive bladder; J30.9 Allergic rhinitis, unspecified; J98.4 Other disorders of lung; S43.001D Unspecified subluxation of right shoulder joint, subsequent encounter; Z79.899 Other long term (current) drug therapy; Z79.890 Hormone replacement therapy
CPT/HCPCS: 36415; 36416; 71045; 80053; 85025; 94640; 94664; J1650; J7611; J7620

== ENCOUNTER 2024-03-18 13:52 | Inpatient (IN) | payer MEDICARE ==
[2024-03-18] MEDS: NIFEdipine XL 30 MG ER.TAB PO SCH (20:26)
[2024-03-18] MEDS: Amiodarone 200 MG TAB PO SCH (20:27)
[2024-03-18] MEDS: Heparin 5,000 UNITS/ML VIAL SC SCH (20:27)
[2024-03-18] MEDS: Atorvastatin Calcium 10 MG TAB PO SCH (20:27)
[2024-03-18] MEDS: Mometasone 200 MCG/Formoterol 5 MCG 60 PUFF INHALER INH SCH (20:28)
[2024-03-18] MEDS: Senokot S 8.6-50 MG TAB PO SCH (20:28)
[2024-03-19] MEDS: Levothyroxine Sodium 125 MCG TAB PO SCH (05:28)
[2024-03-19 06:09] LABS: #Basophils 0.1 thou/uL (0.0-0.2); #Eosinophils 0.5 thou/uL (0.0-0.7); #Lymphocytes 1.8 thou/uL (1.20-3.40); #Neutrophils 6.3 thou/uL (1.40-6.50); %Basophils 0.8 % (0.0-1.0); %Eosinophils 5.1 % (0.0-10.0); %Lymphocytes 18.8 % (21.0-51.0); %Monocytes 9.8 % (0.0-10.0); %Neutrophils 65.5 % (42.0-75.0); Hematocrit 32.2 % (36.0-47.0); Hemoglobin 10.1 g/dL (12.0-16.0); Mean Corpuscular HGB CONC 31.2 g/dL (32.0-36.0); Mean Corpuscular Hemoglobin 30.2 pg (27.0-31.0); Mean Platelet Volume 8.1 fL (7.4-10.4); Platelet Count 307 10x3/uL (130-400); RBC Distribution Width 15.7 % (11.5-14.5); Red Blood Cell (RBC) Count 3.32 mill/uL (4.20-5.40); White Blood Cell (WBC) Count 9.7 10x3/uL (4.8-10.8)
[2024-03-19 06:21] LABS: ALT (SGPT) 7 U/L (8-55); AST (SGOT) 23 U/L (5-34); Albumin 2.3 g/dL (3.4-4.8); Alkaline Phosphatase 82 U/L (40-110); Anion Gap 13 mmol/L (10-20); BUN (Urea Nitrogen) 16 mg/dL (9.8-20.1); Bilirubin, Total 0.6 mg/dL (0.2-1.2); Calc. Creatinine Clearance 71 mL/min (70-130); Calcium 9.4 mg/dL (7.8-10.44); Carbon Dioxide 23 mmol/L (23-31); Chloride 107 mmol/L (98-107); Estimated GFR 63; Globulin 4.2 g/dL (2.4-3.5); Glucose 73 mg/dL (83-110); Potassium 3.6 mmol/L (3.5-5.1); Protein, Total 6.5 g/dL (5.8-8.1); Sodium 139 mmol/L (136-145)
[2024-03-19] MEDS: Polyethylene Glycol 3350 17 GM Packet PO SCH (08:06)
[2024-03-19] MEDS: Acetaminophen 325 MG TAB PO PRN (08:08)
[2024-03-19] MEDS: Famotidine 20 MG TAB PO SCH (08:10)
[2024-03-19] MEDS: Cyanocobalamin (Vitamin B-12) 1,000 MCG TAB PO SCH (08:10)
[2024-03-19] MEDS: DULoxetine 20 MG CAP PO SCH (08:10)
[2024-03-20] MEDS: traMADol HCl 50 MG TAB PO PRN (10:44)
[2024-03-21 13:48] LABS: #Basophils 0.1 thou/uL (0.0-0.2); #Eosinophils 0.3 thou/uL (0.0-0.7); #Lymphocytes 1.9 thou/uL (1.20-3.40); #Monocytes 0.7 thou/uL (0.11-0.59); #Neutrophils 8.2 thou/uL (1.40-6.50); %Basophils 0.6 % (0.0-1.0); %Eosinophils 3.1 % (0.0-10.0); %Lymphocytes 16.7 % (21.0-51.0); %Monocytes 6.2 % (0.0-10.0); %Neutrophils 73.4 % (42.0-75.0); Hematocrit 34.5 % (36.0-47.0); Hemoglobin 10.2 g/dL (12.0-16.0); Mean Corpuscular HGB CONC 29.5 g/dL (32.0-36.0); Mean Corpuscular Hemoglobin 29.8 pg (27.0-31.0); Mean Platelet Volume 7.4 fL (7.4-10.4); Platelet Count 321 10x3/uL (130-400); RBC Distribution Width 16.5 % (11.5-14.5); Red Blood Cell (RBC) Count 3.41 mill/uL (4.20-5.40); White Blood Cell (WBC) Count 11.2 10x3/uL (4.8-10.8)
[2024-03-21 13:52] LABS: Anion Gap 17 mmol/L (10-20); BUN (Urea Nitrogen) 18 mg/dL (9.8-20.1); Calc. Creatinine Clearance 61 mL/min (70-130); Calcium 9.7 mg/dL (7.8-10.44); Carbon Dioxide 19 mmol/L (23-31); Chloride 103 mmol/L (98-107); Estimated GFR 52; Glucose 93 mg/dL (83-110); Potassium 4.2 mmol/L (3.5-5.1); Sodium 135 mmol/L (136-145)
[2024-03-23] MEDS ORDERED: Senokot S 8.6-50 MG TAB PO PRN (09:31)
[2024-03-24 12:03] LABS: %Neutrophils 69.7 % (42.0-75.0); Hemoglobin 9.7 g/dL (12.0-16.0); Manual Diff?? NO; Mean Corpuscular HGB CONC 29.5 g/dL (32.0-36.0); Mean Corpuscular Hemoglobin 29.8 pg (27.0-31.0); Mean Platelet Volume 7.8 fL (7.4-10.4); Platelet Count 429 10x3/uL (130-400); RBC Distribution Width 16.5 % (11.5-14.5); Red Blood Cell (RBC) Count 3.26 mill/uL (4.20-5.40); White Blood Cell (WBC) Count 11.7 10x3/uL (4.8-10.8)
[2024-03-24 12:04] LABS: #Basophils 0.1 thou/uL (0.0-0.2); #Eosinophils 0.3 thou/uL (0.0-0.7); #Lymphocytes 1.9 thou/uL (1.20-3.40); #Monocytes 1.3 thou/uL (0.11-0.59); #Neutrophils 8.1 thou/uL (1.40-6.50); %Basophils 0.6 % (0.0-1.0); %Eosinophils 2.5 % (0.0-10.0); %Lymphocytes 16.2 % (21.0-51.0)
[2024-03-24 12:11] LABS: Anion Gap 15 mmol/L (10-20); BUN (Urea Nitrogen) 17 mg/dL (9.8-20.1); Calc. Creatinine Clearance 62 mL/min (70-130); Calcium 9.5 mg/dL (7.8-10.44); Carbon Dioxide 21 mmol/L (23-31); Chloride 106 mmol/L (98-107); Estimated GFR 54; Glucose 84 mg/dL (83-110); Potassium 4.1 mmol/L (3.5-5.1); Sodium 138 mmol/L (136-145)
[2024-03-27] MEDS: Ondansetron ODT 4 MG TAB SL PRN (12:31)
[2024-03-28] MEDS: Lidocaine 4% Topical Sol 50 ML BOT FS SCH (15:28)
[2024-03-29] MEDS: Polyethylene Glycol 3350 17 GM Packet PO SCH (10:53)
[2024-03-30] MEDS: Polyethylene Glycol 3350 17 GM Packet PO SCH (08:37)
[2024-03-30] MEDS: Amiodarone 200 MG TAB PO SCH (21:07)
[2024-03-31 17:32] LABS: Anion Gap 14 mmol/L (10-20); BUN (Urea Nitrogen) 15 mg/dL (9.8-20.1); Calc. Creatinine Clearance 63 mL/min (70-130); Calcium 9.4 mg/dL (7.8-10.44); Carbon Dioxide 24 mmol/L (23-31); Chloride 103 mmol/L (98-107); Estimated GFR 55; Glucose 90 mg/dL (83-110); Sodium 136 mmol/L (136-145)
[2024-03-31 17:52] LABS: Hematocrit 29.4 % (36.0-47.0); Hemoglobin 8.7 g/dL (12.0-16.0); Mean Corpuscular HGB CONC 29.8 g/dL (32.0-36.0); Mean Corpuscular Hemoglobin 29.9 pg (27.0-31.0); Mean Platelet Volume 8.1 fL (7.4-10.4); Platelet Count 381 10x3/uL (130-400); RBC Distribution Width 16.3 % (11.5-14.5); Red Blood Cell (RBC) Count 2.93 mill/uL (4.20-5.40)
[2024-03-31 18:01] LABS: Bilirubin Negative (Negative); Blood, Urine Moderate (Negative); Clarity Clear (Clear); Glucose, Urine (Dipstick) Negative (Negative); Ketone, Urine Negative (Negative); Leukocyte Negative (Negative); Nitrite Negative (Negative); Protein, Urine (Dipstick) 30 mg/dL (Neg-Trace); Specific Gravity, Urine 1.015 (1.005-1.030); Urobilinogen 0.2 mg/dL (Less than 2)
[2024-03-31 18:04] LABS: MDiff Complete? YES
[2024-03-31 18:11] LABS: Eosinophils 1 % (0-10); Lymphocytes 23 % (21-51); Monocytes 7 % (0-10); Myelocyte 1 % (0-0); Neutrophil 67 % (42-75)
[2024-03-31 18:19] LABS: Anisocytosis SLIGHT = 6-15 cells (100X) (0-5/hpf)
[2024-03-31 18:20] LABS: Macrocytosis SLIGHT = 6-15 cells (100X) (0-5/hpf); Microcytosis SLIGHT = 6-15 cells (100X) (0-5/hpf); Poikilocytosis SLIGHT = 6-15 cells (100X) (0-5/hpf)
[2024-03-31 18:22] LABS: Blister Cells SLIGHT = 2-5 cells (100X) (0-1/hpf); Hypochromia SLIGHT = 6-15 cells (100X) (0-5/hpf); Ovalocytes SLIGHT = 2-5 cells (100X) (0-1/hpf); Target Cells SLIGHT = 2-5 cells (100X) (0-1/hpf)
[2024-03-31 18:23] LABS: Dohle Bodies SLIGHT; Platelet Adequacy Comment Appears Adequate; Tear Drops SLIGHT = 2-5 cells (100X) (0-1/hpf); Toxic Granulation SLIGHT; Vacuoles SLIGHT; White Blood Cell (WBC) Count 7.5 10x3/uL (4.8-10.8)
[2024-03-31 18:36] LABS: Bacteria/HPF 1+ HPF (None Seen); RBC/HPF 0-3 HPF (0-3); Squamous Epithelial 0-3 HPF (0-3); Transitional Epithelial 0-3 HPF (None Seen); WBC/HPF 0-3 HPF (0-3)
[2024-04-02] MEDS: DULoxetine 30 MG CAP PO SCH (08:45)
[2024-04-03 06:38] VITALS: BMI 35.8
[2024-04-03 09:34] LABS: Hemoglobin 11.2 g/dL (12.0-16.0); Red Blood Cell (RBC) Count 3.71 mill/uL (4.20-5.40); White Blood Cell (WBC) Count 7.9 10x3/uL (4.8-10.8)
[2024-04-03 09:35] LABS: #Eosinophils 0.2 thou/uL (0.0-0.7); #Monocytes 0.6 thou/uL (0.11-0.59); %Eosinophils 2.3 % (0.0-10.0); %Lymphocytes 25.1 % (21.0-51.0); %Neutrophils 63.6 % (42.0-75.0); Anion Gap 14 mmol/L (10-20); BUN (Urea Nitrogen) 15 mg/dL (9.8-20.1); Calc. Creatinine Clearance 52 mL/min (70-130); Calcium 10.2 mg/dL (7.8-10.44); Carbon Dioxide 23 mmol/L (23-31); Chloride 103 mmol/L (98-107); Estimated GFR 47; Glucose 102 mg/dL (83-110); Hematocrit 37.6 % (36.0-47.0); Manual Diff?? NO; Mean Corpuscular HGB CONC 29.7 g/dL (32.0-36.0); Mean Corpuscular Hemoglobin 30.1 pg (27.0-31.0); Mean Platelet Volume 8.5 fL (7.4-10.4); Platelet Count 383 10x3/uL (130-400); Potassium 5.2 mmol/L (3.5-5.1); RBC Distribution Width 16.6 % (11.5-14.5); Sodium 135 mmol/L (136-145)
[2024-04-03 09:36] LABS: #Basophils 0.1 thou/uL (0.0-0.2)
[2024-04-03] MEDS: LOKELMA 10 GM PACKET PO SCH (15:46)
[2024-04-04 05:36] VITALS: BMI 35.3
[2024-04-04 06:14] LABS: Anion Gap 10 mmol/L (10-20); BUN (Urea Nitrogen) 19 mg/dL (9.8-20.1); Calc. Creatinine Clearance 55 mL/min (70-130); Calcium 9.7 mg/dL (7.8-10.44); Carbon Dioxide 25 mmol/L (23-31); Chloride 104 mmol/L (98-107); Estimated GFR 51; Glucose 84 mg/dL (83-110); Potassium 4.4 mmol/L (3.5-5.1); Sodium 135 mmol/L (136-145)
[2024-04-04 08:58] VITALS: BP 136/73; TEMP 97.8
== END 2024-04-04 11:20 | DRG 945 ==
LOC: NAV ACUTE 18:08
PROVIDERS: ADMIT Family Medicine; ATTEND Family Medicine
PROC: F07Z9ZZ Gait Training/Functional Ambulation Treatment (ICD-10-PCS; principal; 2024-03-18)
DX: R53.81 Other malaise (principal); D62 Acute posthemorrhagic anemia; I13.0 Hypertensive heart and chronic kidney disease with heart failure and stage 1 through stage 4 chronic kidney disease, or unspecified chronic kidney disease; I50.32 Chronic diastolic (congestive) heart failure; M97.8XXD Periprosthetic fracture around other internal prosthetic joint, subsequent encounter; E03.9 Hypothyroidism, unspecified; E78.5 Hyperlipidemia, unspecified; I48.91 Unspecified atrial fibrillation; F32.9 Major depressive disorder, single episode, unspecified; N18.31 Chronic kidney disease, stage 3a; N32.81 Overactive bladder; R09.89 Other specified symptoms and signs involving the circulatory and respiratory systems; F41.9 Anxiety disorder, unspecified; J98.4 Other disorders of lung; R13.10 Dysphagia, unspecified; M24.411 Recurrent dislocation, right shoulder; Z79.899 Other long term (current) drug therapy; Z79.82 Long term (current) use of aspirin; Z79.890 Hormone replacement therapy; Z98.890 Other specified postprocedural states; Z96.653 Presence of artificial knee joint, bilateral; Z66 Do not resuscitate; W19.XXXD Unspecified fall, subsequent encounter
CPT/HCPCS: 36415; 71045; 80048; 80053; 81001; 84145; 85025; 87077; 87086; 87186; J1644; Q0162